=== PATIENT | male | born 1985 | race Caucasian/White ===

== ENCOUNTER 2017-02-25 15:34 | Emergency (ER) | payer SELFPAY ==
[2017-02-25] MEDS ORDERED: Penicillin V Potassium 500 MG Tab PO STA (15:54)
[2017-02-25] MEDS ORDERED: Bupivacaine 0.5%/EPINEPHrine 1:200,000 50 ML MDV NERVRT ONE (15:54)
--- NOTE | 2017-02-25 16:18 | EDM.PDOC ---
ED HPI GENERAL MEDICAL PROBLEM - General Chief Complaint: ENT Problem Stated Complaint: TOOTHACHE Time Seen by Provider: 02/25/17 16:00 Source of Information: Reports: Patient History Limitations: Reports: No Limitations - History of Present Illness INITIAL COMMENTS - FREE TEXT/NARRATIVE: 31 yo male from [place] presents on his way home from work with severe dental pain. Says he has no doctor or dentist as he is new in the area and has not yet found a dentist that will see him. He has 2 teeth on the right side of his mouth that are hurting him. No fever. 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) (none) - Related Data Home Meds: Home Meds Acetaminophen/HYDROcodone [Durham 325-5 MG] 1 - 2 tab PO Q6H PRN #10 tab [Rx] Penicillin V Potassium [IJD: Penicillin V Potassium] 500 mg PO .EVERY 6 HOURS # 40 tab 02/25/17 [Rx] ED ROS ENT - Review of Systems Review Of Systems: See Below Constitutional: Reports: No Symptoms HEENT: Reports: Dental Pain Respiratory: Reports: No Symptoms Cardiovascular: Reports: No Symptoms Endocrine: Reports: No Symptoms GI/Abdominal: Reports: No Symptoms : Reports: No Symptoms Musculoskeletal: Reports: No Symptoms Skin: Reports: No Symptoms Neurological: Reports: No Symptoms Psychiatric: Reports: No Symptoms ED EXAM, ENT - Physical Exam Exam: See Below Exam Limited By: No Limitations General Appearance: Alert, WD/WN, Mild Distress Eye Exam: Bilateral Eye: Normal Inspection Ears: Normal External Exam, Normal Canal, Hearing Grossly Normal Nose: Normal Inspection, Normal Mucousa, No Blood Mouth/Throat: Normal Lips, Normal Oropharynx, Dental Abcess, Dental Tenderness. No: Throat Pain, Throat Swelling, Tongue Swelling, Tonsillar Erythema, Tonsillar Exudates, Tonsillar Swelling Head: Atraumatic, Normocephalic Neck: Normal Inspection, Supple, Non-Tender. No: Lymphadenopathy (R), Lymphadenopathy (L) Respiratory/Chest: No Respiratory Distress, Lungs Clear, Normal Breath Sounds Neurological: Alert, Oriented, CN II-XII Intact, Normal Cognition, No Motor/ Sensory Deficits Psychiatric: Normal Affect, Normal Mood Skin: Warm, Dry, Intact, Normal Color, No Rash Lymphatic: No Adenopathy Course - Vital Signs Text/Narrative:: Nerve blocks with 5 ml x 2(one dose at each site) with 0.5% bupivacaine with epi. R posterior most mandibular molar and R maxillary canine. - Orders/Labs/Meds Meds: Medications Discontinued Medications Generic Name Dose Route Start Last Admin Trade Name Freq PRN Reason Stop Dose Admin Bupivacaine HCl/Epinephrine Bitart 50 ml 02/25/17 15:54 Marcaine 0.5%/Epinephrine 1:200,000 NERVRT 02/25/17 15:55 ONETIME ONE Penicillin V Potassium 500 mg 02/25/17 15:54 Veetids PO 02/25/17 15:55 NOW STA Departure - Departure Time of Disposition: 16:21 Disposition: Home, Self-Care 01 Condition: Fair Clinical Impression: Pain, dental, Dental abscess - Discharge Information Prescriptions: Acetaminophen/HYDROcodone [Durham 325-5 MG] 1 - 2 tab PO Q6H PRN #10 tab PRN Reason: Pain Penicillin V Potassium [IJD: Penicillin V Potassium] 500 mg PO .EVERY 6 HOURS # 40 tab Referrals: PCP,None [Primary Care Provider] - Forms: ED Department Discharge
[2017-02-25] MEDS ORDERED: Penicillin V Potassium 250 MG Tab PO ONE (16:45)
== END 2017-02-25 17:00 | disposition home or self-care (01) ==
LOC: FB.ED 15:34
DX: K04.7 Periapical abscess without sinus (principal)
CPT/HCPCS: 64400; 99282; A9270

== ENCOUNTER 2017-06-07 20:30 | Emergency (ER) | payer BC, MEDICAID ==
--- NOTE | 2017-06-09 13:17 | ER ---
DATE SEEN: 06/07/2017 Abnormal Behavior. Also, his symptoms are unusual. I think he is on drugs. He had difficulty signing his own name. He was shaky and had elevated blood pressure and tachycardia, all are suggestive of drug abuse. Urine sample is not obtained, nor was he confronted on this. He did have reaction of his pupils, they were not pinpoint or not dilated. However, it is possible he is using synthetic marijuana or other street drugs that could cause his agitation and restlessness. He could not sign his name without difficulty and was fidgety, and he wanted a work excuse to excuse him from work. I felt that this was not a reason to excuse him from work. He did not have a valid reason, and he was not excused from work. He works at [employer]. It would have been a different story if he came to me and said that he wanted to be excused from work because he was using drugs and he did not feel it was safe to work, but he did not come forward with that discussion. /[id number] JOANNE/PRATIMA
--- NOTE | 2017-06-10 09:20 | ER ---
DATE SEEN: 06/07/2017 TIME SEEN: The patient was seen at 2040 hours. HISTORY OF PRESENT ILLNESS: This is a 32-year-old man who smokes, comes in with history of popping his ears, "They won't pop." They have been doing this for 3 days. No nausea, vomiting, or diarrhea. No fever. No chills. He is a smoker and has a cough intermittently. No nasal congestion. No sinus pressure. No sore throat. No neck stiffness. No shortness of breath or cough, no chest pain, irregular heartbeat, gastrointestinal symptoms, symptoms, or musculoskeletal symptoms. REVIEW OF SYSTEMS: As noted above. PHYSICAL EXAMINATION: VITAL SIGNS: 160/95, heart rate 111, respirations 17, oxygen saturation 100%. HEENT: Pupils do react to light. He has unusual silver-green eyes. On examination, there is a trace of bulging left TM. Right is scarred without bulging. It is opaque. He has history of multiple ear infections, previous PE tubes placed, per history. Left ear, no fluid demonstrated. No erythema noted. The canal is clean. Umbo is visible and there is slight retraction of the TM. NECK: No cervical adenopathy. Pharynx without erythema. Smoking odor noted to his breath. Dentition fair. HEART: Without murmur. LUNGS: Clear. No rales or rhonchi or wheezes. ABDOMEN: Soft. No guarding. No abdominal discomfort. EXTREMITIES: Without edema. ASSESSMENT: 1. Viral upper respiratory infection. 2. Eustachian tube dysfunction. 3. Ear popping is a function of the eustachian tube dysfunction. PLAN: He has been taught the Toynbee maneuver and also he can use, mouth closed, nose plugged and blowing air out his ear as an attempt to also move the eardrums. Please stop smoking, and if he uses Sudafed, it may decrease the swelling and eustachian tube dysfunction and partial collapse. /[id number] JOANNE/PAULINEL
== END 2017-06-07 21:05 | disposition home or self-care (01) ==
LOC: FB.ED 20:30
DX: H69.93 Unspecified Eustachian tube disorder, bilateral (principal); J06.9 Acute upper respiratory infection, unspecified
CPT/HCPCS: 99282

== ENCOUNTER 2017-07-05 08:13 | Emergency (ER) | payer SELFPAY ==
[2017-07-05] MEDS ORDERED: Ketorolac 60 MG/2 ML SDV IM ONE (08:41)
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
--- NOTE | 2017-07-06 12:06 | CR ---
INDICATION: Fall, pain. RIGHT WRIST: Three views of the right wrist revealed no evidence of an acute fracture, dislocation, or other significant bone or joint abnormality. IMPRESSION: Normal right wrist. MTDD
== END 2017-07-05 09:40 | disposition home or self-care (01) ==
LOC: FB.ED 08:13
DX: S50.11XA Contusion of right forearm, initial encounter (principal); F17.210 Nicotine dependence, cigarettes, uncomplicated; W19.XXXA Unspecified fall, initial encounter; Y04.0XXA Assault by unarmed brawl or fight, initial encounter
CPT/HCPCS: 73110; 96372; 99283; J1885

== ENCOUNTER 2017-08-09 15:17 | Emergency (ER) | payer SELFPAY ==
[2017-08-09] MEDS ORDERED: Ketorolac 60 MG/2 ML SDV IM ONE (15:38)
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
[2017-08-09] MEDS ORDERED: Acetaminophen/oxyCODONE 325-5 MG Tab PO ONE (17:16)
== END 2017-08-09 17:20 | disposition home or self-care (01) ==
LOC: FB.ED 15:17
DX: G89.29 Other chronic pain (principal); M54.5 Low back pain; F17.210 Nicotine dependence, cigarettes, uncomplicated; Z98.890 Other specified postprocedural states
CPT/HCPCS: 96372; 99283; A9270; J1885; J2360

== ENCOUNTER 2017-09-26 19:14 | Emergency (ER) | payer OTHER ==
[2017-09-26] MEDS ORDERED: Ketorolac 60 MG/2 ML SDV IM ONE (20:41)
[2017-09-26] MEDS ORDERED: Acetaminophen/HYDROcodone 325-5 MG Tab PO ONE (21:31)
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
== END 2017-09-26 21:42 | disposition home or self-care (01) ==
LOC: FB.ED 19:14
DX: S82.431A Displaced oblique fracture of shaft of right fibula, initial encounter for closed fracture (principal); S82.831A Other fracture of upper and lower end of right fibula, initial encounter for closed fracture; F17.200 Nicotine dependence, unspecified, uncomplicated; W18.39XA Other fall on same level, initial encounter
CPT/HCPCS: 29515; 73590; 73610; 96372; 99283; A9270; J1885

== ENCOUNTER 2019-03-24 00:42 | Observation (INO) | payer SELFPAY ==
[2019-03-24] MEDS: Sodium Chloride 0.9% 10 ML Syringe FLUSH PRN ×4 (00:48→02:20)
[2019-03-24] MEDS ORDERED: Midazolam 1 MG/ML 2 ML SDV IVPUSH ONE (00:53)
[2019-03-24] MEDS ORDERED: Sodium Chloride 0.9% 1,000 ML IV SCH (01:00)
[2019-03-24] MEDS ORDERED: LORazepam 2 MG/ML SDV IV STA (01:15)
[2019-03-24 01:23] LABS: ACETAMINOPHEN < 2 ug/mL (<2)
--- NOTE | 2019-03-24 01:26 | EDM.PDOCBH ---
ED HPI GENERAL MEDICAL PROBLEM - General Chief Complaint: Drug or Alcohol Abuse Stated Complaint: OVERDOSE Time Seen by Provider: 03/24/19 01:20 Source of Information: Reports: EMS, EMS Notes Reviewed, Family History Limitations: Reports: Altered Mental Status, Intoxication - History of Present Illness INITIAL COMMENTS - FREE TEXT/NARRATIVE: 33 yo male brought by EMS unresponsive. Reported to have taken 16 tabs of Benadryl,had been complaining of suicidal intent earlier in the day. He was also drinking. Time of ingestion unclear. Upon arrival,EMS had to put an LMA to protect his airway,which stimulated to spontaneous breathing again.He had one large emesis,and received 4 mg IV as well as 150 mg of Ketamine enroute.IN the ED,I found him t o be extremely agitated,tremulous,and having muscle stiffness.I gave him 2 mg if IV Versed and 2 mg IV of Physostigmine,1 L of Normal saline. His past medical history is unclear,including allergies. - Related Data Allergies Allergy/AdvReac Type Severity Reaction Status Date / Time No Known Allergies Allergy Verified 03/24/19 15:02 Home Meds: Home Meds NK [No Known Home Meds] 07/05/17 [History] Escitalopram [Lexapro] 10 mg PO BEDTIME 03/24/19 [History] traZODone HCl [Trazodone HCl] 25 mg PO BEDTIME 03/24/19 [History] Past Medical History - Past Health History Medical/Surgical History: Denies Medical/Surgical History Social & Family History - Alcohol Use Alcohol Use History: Yes ED ROS GENERAL - Review of Systems Review Of Systems: Comprehensive ROS is negative, except as noted in HPI. ED EXAM, BEHAVIORAL HEALTH - Physical Exam Exam: See Below Exam Limited By: Altered Mental Status General Appearance: Mild Distress Eye Exam: Bilateral Eye: PERRL (Dilated) Ears: Normal External Exam Nose: Normal Inspection Throat/Mouth: Normal Inspection Head: Atraumatic Neck: Normal Inspection Respiratory/Chest: Decreased Breath Sounds Cardiovascular: Normal Peripheral Pulses GI/Abdominal: Normal Bowel Sounds (Male) Exam: No Hernia Back Exam: Normal Inspection Neurological: Disoriented to Place, Disoriented to Time, Inattentive Psychiatric: Incoherent, Restless, Agitated, Disoriented Skin Exam: Warm, Dry EKG INTERPRETATION EKG Date: 03/24/19 Rhythm: NSR Rate (Beats/Min): 130 Comparison: NA - No Prior EKG COURSE, BEHAVIORAL HEALTH COMP - Course Vital Signs: Last Vital Signs Temp 97.2 F 03/24/19 14:59 Pulse 74 03/24/19 14:59 Resp 20 03/24/19 14:59 BP 122/74 03/24/19 14:59 Pulse Ox 96 03/24/19 14:59 Orders, Labs, Meds: Laboratory Tests 03/24/19 03/24/19 03/24/19 Range/Units 00:50 00:50 00:50 WBC 13.3 H (4.5-12.0) X10-3/uL RBC 4.56 (4.30-5.75) x10(6)uL Hgb 15.0 (13.5-17.8) g/dL Hct 44.5 (30.0-51.3) % MCV 97.7 H (80-96) fL MCH 32.9 (27.7-33.6) pg MCHC 33.7 (32.2-35.4) g/dL RDW 12.1 (11.5-15.5) % Plt Count 294 (125-369) X10(3)uL MPV 8.1 (7.4-10.4) fL Add Manual Diff Yes Neutrophils % (Manual) 60 (46-82) % Band Neutrophils % 5 (0-6) % Lymphocytes % (Manual) 25 (13-37) % Monocytes % (Manual) 7 (4-12) % Eosinophils % (Manual) 3 (0-5) % Sodium 138 (135-145) mmol/L Potassium 4.4 (3.5-5.3) mmol/L Chloride 101 (100-110) mmol/L Carbon Dioxide 27 (21-32) mmol/L BUN 19 H (7-18) mg/dL Creatinine 0.9 (0.70-1.30) mg/dL Est Cr Clr Drug Dosing TNP Estimated GFR (MDRD) > 60 (>60) BUN/Creatinine Ratio 21.1 H (9-20) Glucose 99 (80-116) mg/dL Calcium 8.4 L (8.6-10.2) mg/dL Total Bilirubin 0.4 (0.1-1.3) mg/dL AST 72 H (5-25) IU/L ALT 77 H (12-36) U/L Alkaline Phosphatase 74 (56-112) IU/L Total Protein 7.9 (6.0-8.0) g/dL Albumin 4.6 (3.5-5.2) g/dL Globulin 3.3 g/dL Albumin/Globulin Ratio 1.4 Salicylates (<2.8) mg/dL Urine Opiates Screen (NEGATIVE) Ur Oxycodone Screen (NEGATIVE) Ur Propoxyphene Screen (NEGATIVE) Acetaminophen (<2) ug/mL Ur Barbituates Screen (NEGATIVE) Ur Tricyclics Screen (NEGATIVE) Ur Phencyclidine Scrn (NEGATIVE) Ur Amphetamine Screen (NEGATIVE) Urine MDMA Screen (NEGATIVE) U Benzodiazepines Scrn (NEGATIVE) U Cocaine Metab Screen (NEGATIVE) U Marijuana (THC) Screen (NEGATIVE) Ethyl Alcohol 0.21 H* (<0.03) % 03/24/19 03/24/19 Range/Units 00:50 01:28 WBC (4.5-12.0) X10-3/uL RBC (4.30-5.75) x10(6)uL Hgb (13.5-17.8) g/dL Hct (30.0-51.3) % MCV (80-96) fL MCH (27.7-33.6) pg MCHC (32.2-35.4) g/dL RDW (11.5-15.5) % Plt Count (125-369) X10(3)uL MPV (7.4-10.4) fL Add Manual Diff Neutrophils % (Manual) (46-82) % Band Neutrophils % (0-6) % Lymphocytes % (Manual) (13-37) % Monocytes % (Manual) (4-12) % Eosinophils % (Manual) (0-5) % Sodium (135-145) mmol/L Potassium (3.5-5.3) mmol/L Chloride (100-110) mmol/L Carbon Dioxide (21-32) mmol/L BUN (7-18) mg/dL Creatinine (0.70-1.30) mg/dL Est Cr Clr Drug Dosing Estimated GFR (MDRD) (>60) BUN/Creatinine Ratio (9-20) Glucose (80-116) mg/dL Calcium (8.6-10.2) mg/dL Total Bilirubin (0.1-1.3) mg/dL AST (5-25) IU/L ALT (12-36) U/L Alkaline Phosphatase (56-112) IU/L Total Protein (6.0-8.0) g/dL Albumin (3.5-5.2) g/dL Globulin g/dL Albumin/Globulin Ratio Salicylates 3.1 (<2.8) mg/dL Urine Opiates Screen Negative (NEGATIVE) Ur Oxycodone Screen Negative (NEGATIVE) Ur Propoxyphene Screen Negative (NEGATIVE) Acetaminophen < 2 L (<2) ug/mL Ur Barbituates Screen Negative (NEGATIVE) Ur Tricyclics Screen Negative (NEGATIVE) Ur Phencyclidine Scrn Negative (NEGATIVE) Ur Amphetamine Screen Negative (NEGATIVE) Urine MDMA Screen Negative (NEGATIVE) U Benzodiazepines Scrn Negative (NEGATIVE) U Cocaine Metab Screen Negative (NEGATIVE) U Marijuana (THC) Screen Negative (NEGATIVE) Ethyl Alcohol (<0.03) % Medications Discontinued Medications Generic Name Dose Route Start Last Admin Trade Name Freq PRN Reason Stop Dose Admin Sodium Chloride 1,000 mls @ 999 mls/hr 03/24/19 01:00 03/24/19 00:54 Normal Saline IV 999 mls/hr ASDIRECTED NIRMAL Administration Sodium Chloride 1,000 mls @ 125 mls/hr 03/24/19 01:45 03/24/19 10:11 Normal Saline IV 125 mls/hr ASDIRECTED NIRMAL Administration Lorazepam 1 mg 03/24/19 01:15 03/24/19 01:40 Ativan IV 03/24/19 01:16 1 mg ONETIME STA Administration Lorazepam 1 mg 03/24/19 01:43 Ativan IV Q1H PRN Agitation Lorazepam 0.5 mg 03/24/19 15:36 03/24/19 15:48 Ativan PO 03/24/19 15:37 0.5 mg ONETIME ONE Administration Midazolam HCl 2 mg 03/24/19 00:53 03/24/19 01:02 Versed 1 Mg/Ml IVPUSH 03/24/19 00:54 2 mg ONETIME ONE Administration Physostigmine Salicylate 2 mg 03/24/19 01:12 03/24/19 01:20 Physostigmine IVPUSH 03/24/19 01:13 2 mg ONETIME ONE Administration Sodium Chloride 10 ml 03/24/19 00:53 03/24/19 02:20 Saline Flush FLUSH 10 ml ASDIRECTED PRN Administration Keep Vein Open Departure - Departure Time of Disposition: 02:30 Disposition: Admitted As Inpatient 64 Condition: Good Clinical Impression: Alcohol abuse Anticholinergic drug overdose Qualifiers: Encounter type: initial encounter - Discharge Information *PRESCRIPTION DRUG MONITORING PROGRAM REVIEWED*: Yes *COPY OF PRESCRIPTION DRUG MONITORING REPORT IN PATIENT ELIAS: Yes - Problem List & Annotations (1) Elevated ETOH level SNOMED Code(s): 150855031 Code(s): R78.0 - FINDING OF ALCOHOL IN BLOOD Status: Acute Priority: High (2) Overdose SNOMED Code(s): 82217417 Code(s): T50.901A - POISONING BY UNSP DRUG/MEDS/BIOL SUBST, ACCIDENTAL, INIT Status: Acute Qualifiers: Encounter type: initial encounter (3) Anticholinergic drug overdose SNOMED Code(s): 907424469 Code(s): T44.3X1A - POISONING BY OTH PARASYMPATH AND SPASMOLYTICS, ACC, INIT Status: Acute Qualifiers: Encounter type: initial encounter - Problem List Review Problem List Initiated/Reviewed/Updated: Yes - Assessment/Plan Plan: Andrea did calm down with some versed and Physostigmine. Later he needed Lorazepam. Urine was obtained by catheterization.Urine drug screen,APAP and salicylate level was ordered. Will admit to ICU for monitoring and supportive therapy.
[2019-03-24] MEDS ORDERED: LORazepam 2 MG/ML SDV IV PRN (01:43)
[2019-03-24] MEDS: Sodium Chloride 0.9% 1,000 ML IV SCH ×2 (02:11→10:11)
--- NOTE | 2019-03-24 07:29 | PCM.HP.2 ---
H&P History of Present Illness - General Date of Service: 03/24/19 Admit Problem/Dx: Admission Diagnosis/Problem Admission Diagnosis/Problem Delirium due to multiple etiologies Source of Information: EMS Notes Reviewed, Old Records - History of Present Illness Initial Comments - Free Text/Narative: 33 yo male brought by EMS unresponsive. He is not speaking at this time. According to the ER note. Reported to have taken 16 tabs of Benadryl,had been complaining of suicidal intent earlier in the day. He was also drinking. Time of ingestion unclear. Upon arrival,EMS had to put an LMA to protect his airway, which stimulated to spontaneous breathing again.He had one large emesis,and received 4 mg IV as well as 150 mg of Ketamine enroute.IN the ED,I found him t o be extremely agitated,tremulous,and having muscle stiffness.I gave him 2 mg if IV Versed and 2 mg IV of Physostigmine,1 L of Normal saline. This is the ER note. I could not give the patient answered questions. He is very tired. He does move a little bit when I poke him and brought him. He has answered some questions for the nurses now is in a deep sleep at this time. Unable to get any more history than what is already on here. Poison control was contacted. He is in ICU under observation. - Related Data Allergies/Adverse Reactions: Allergies Allergy/AdvReac Type Severity Reaction Status Date / Time Unable to Assess Allergy Unverified 03/24/19 01:53 Home Medications: Home Meds Escitalopram [Lexapro] 10 mg PO BEDTIME 03/24/19 [History] traZODone HCl [Trazodone HCl] 25 mg PO BEDTIME 03/24/19 [History] Past Medical History Genitourinary History: Reports: Other (See Below) Other Genitourinary History: verbalizes having bladder problems at 12 years of age Neurological History: Reports: Other (See Below) Other Neuro History: emotional issues Other Psychiatric History: has had many sleep issues-depression and suicidal thoughts. Dad of suicide om 2005 Social & Family History - Family History Family Medical History: Unobtainable - Tobacco Use Smoking Status *Q: Current Every Day Smoker Years of Tobacco use: 18 Packs/Tins Daily: 1 - Caffeine Use Caffeine Use: Reports: Coffee, Energy Drinks, Soda Caffeine Use Comment: Unable to obtain information from patient. - Alcohol Use Days Per Week of Alcohol Use: 2 Number of Drinks Per Day: 6 Total Drinks Per Week: 12 Date of Last Drink: 03/23/19 Time of Last Drink: 20:00 - Recreational Drug Use Recreational Drug Use: No H&P Review of Systems - Review of Systems: Review Of Systems: Unable To Obtain Reason Not Obtained: Patient intoxicated with alcohol and sedated Exam - Exam Exam: See Below - Vital Signs Vital Signs: Last Vital Signs Temp 97 F 03/24/19 05:45 Pulse 75 03/24/19 05:45 Resp 22 H 03/24/19 05:45 BP 104/57 L 03/24/19 05:45 Pulse Ox 97 03/24/19 05:45 Weight: 137 lb 2 oz - Exam General: Sedated, Lethargic HEENT: Posterior Pharynx Clear, TMs Clear, Other (He has a gag reflex) Neck: Supple, Trachea Midline Lungs: Clear to Auscultation, Normal Respiratory Effort Cardiovascular: Regular Rate, Regular Rhythm. No: Systolic Murmur GI/Abdominal Exam: Normal Bowel Sounds, Soft, Non-Tender, No Distention Extremities: No Pedal Edema Skin: Warm, Intact - Patient Data Lab Results Last 24 hrs: Laboratory Results - last 24 hr 03/24/19 03/24/19 03/24/19 Range/Units 00:50 00:50 00:50 WBC 13.3 H (4.5-12.0) X10-3/uL RBC 4.56 (4.30-5.75) x10(6)uL Hgb 15.0 (13.5-17.8) g/dL Hct 44.5 (30.0-51.3) % MCV 97.7 H (80-96) fL MCH 32.9 (27.7-33.6) pg MCHC 33.7 (32.2-35.4) g/dL RDW 12.1 (11.5-15.5) % Plt Count 294 (125-369) X10(3)uL MPV 8.1 (7.4-10.4) fL Neut % (Auto) (46-82) % Lymph % (Auto) (13-37) % [place] % (Auto) (4-12) % Eos % (Auto) (1.0-5.0) % Baso % (Auto) (0-2) % Neut # (Auto) (1.6-8.3) # Lymph # (Auto) (0.6-5.0) # [place] # (Auto) (0.0-1.3) # Eos # (Auto) (0.0-0.8) # Baso # (Auto) (0.0-0.2) # Add Manual Diff Yes Neutrophils % (Manual) 60 (46-82) % Band Neutrophils % 5 (0-6) % Lymphocytes % (Manual) 25 (13-37) % Monocytes % (Manual) 7 (4-12) % Eosinophils % (Manual) 3 (0-5) % Sodium 138 (135-145) mmol/L Potassium 4.4 (3.5-5.3) mmol/L Chloride 101 (100-110) mmol/L Carbon Dioxide 27 (21-32) mmol/L BUN 19 H (7-18) mg/dL Creatinine 0.9 (0.70-1.30) mg/dL Est Cr Clr Drug Dosing TNP Estimated GFR (MDRD) > 60 (>60) BUN/Creatinine Ratio 21.1 H (9-20) Glucose 99 (80-116) mg/dL Calcium 8.4 L (8.6-10.2) mg/dL Total Bilirubin 0.4 (0.1-1.3) mg/dL AST 72 H (5-25) IU/L ALT 77 H (12-36) U/L Alkaline Phosphatase 74 (56-112) IU/L Troponin I (<0.017-0.056) ng/mL Total Protein 7.9 (6.0-8.0) g/dL Albumin 4.6 (3.5-5.2) g/dL Globulin 3.3 g/dL Albumin/Globulin Ratio 1.4 Salicylates (<2.8) mg/dL Urine Opiates Screen (NEGATIVE) Ur Oxycodone Screen (NEGATIVE) Ur Propoxyphene Screen (NEGATIVE) Acetaminophen (<2) ug/mL Ur Barbituates Screen (NEGATIVE) Ur Tricyclics Screen (NEGATIVE) Ur Phencyclidine Scrn (NEGATIVE) Ur Amphetamine Screen (NEGATIVE) Urine MDMA Screen (NEGATIVE) U Benzodiazepines Scrn (NEGATIVE) U Cocaine Metab Screen (NEGATIVE) U Marijuana (THC) Screen (NEGATIVE) Ethyl Alcohol 0.21 H* (<0.03) % 03/24/19 03/24/19 03/24/19 Range/Units 00:50 01:28 06:32 WBC 9.0 (4.5-12.0) X10-3/uL RBC 3.80 L (4.30-5.75) x10(6)uL Hgb 12.9 L (13.5-17.8) g/dL Hct 36.4 (30.0-51.3) % MCV 95.9 (80-96) fL MCH 34.0 H (27.7-33.6) pg MCHC 35.5 H (32.2-35.4) g/dL RDW 12.3 (11.5-15.5) % Plt Count 225 (125-369) X10(3)uL MPV 7.5 (7.4-10.4) fL Neut % (Auto) 82.5 H (46-82) % Lymph % (Auto) 12.8 L (13-37) % [place] % (Auto) 3.9 L (4-12) % Eos % (Auto) 1 (1.0-5.0) % Baso % (Auto) 0 (0-2) % Neut # (Auto) 7.6 (1.6-8.3) # Lymph # (Auto) 1.1 (0.6-5.0) # [place] # (Auto) 0.3 (0.0-1.3) # Eos # (Auto) 0.0 (0.0-0.8) # Baso # (Auto) 0.0 (0.0-0.2) # Add Manual Diff Neutrophils % (Manual) (46-82) % Band Neutrophils % (0-6) % Lymphocytes % (Manual) (13-37) % Monocytes % (Manual) (4-12) % Eosinophils % (Manual) (0-5) % Sodium (135-145) mmol/L Potassium (3.5-5.3) mmol/L Chloride (100-110) mmol/L Carbon Dioxide (21-32) mmol/L BUN (7-18) mg/dL Creatinine (0.70-1.30) mg/dL Est Cr Clr Drug Dosing Estimated GFR (MDRD) (>60) BUN/Creatinine Ratio (9-20) Glucose (80-116) mg/dL Calcium (8.6-10.2) mg/dL Total Bilirubin (0.1-1.3) mg/dL AST (5-25) IU/L ALT (12-36) U/L Alkaline Phosphatase (56-112) IU/L Troponin I (<0.017-0.056) ng/mL Total Protein (6.0-8.0) g/dL Albumin (3.5-5.2) g/dL Globulin g/dL Albumin/Globulin Ratio Salicylates 3.1 (<2.8) mg/dL Urine Opiates Screen Negative (NEGATIVE) Ur Oxycodone Screen Negative (NEGATIVE) Ur Propoxyphene Screen Negative (NEGATIVE) Acetaminophen < 2 L (<2) ug/mL Ur Barbituates Screen Negative (NEGATIVE) Ur Tricyclics Screen Negative (NEGATIVE) Ur Phencyclidine Scrn Negative (NEGATIVE) Ur Amphetamine Screen Negative (NEGATIVE) Urine MDMA Screen Negative (NEGATIVE) U Benzodiazepines Scrn Negative (NEGATIVE) U Cocaine Metab Screen Negative (NEGATIVE) U Marijuana (THC) Screen Negative (NEGATIVE) Ethyl Alcohol (<0.03) % 03/24/19 03/24/19 Range/Units 06:32 06:32 WBC (4.5-12.0) X10-3/uL RBC (4.30-5.75) x10(6)uL Hgb (13.5-17.8) g/dL Hct (30.0-51.3) % MCV (80-96) fL MCH (27.7-33.6) pg MCHC (32.2-35.4) g/dL RDW (11.5-15.5) % Plt Count (125-369) X10(3)uL MPV (7.4-10.4) fL Neut % (Auto) (46-82) % Lymph % (Auto) (13-37) % [place] % (Auto) (4-12) % Eos % (Auto) (1.0-5.0) % Baso % (Auto) (0-2) % Neut # (Auto) (1.6-8.3) # Lymph # (Auto) (0.6-5.0) # [place] # (Auto) (0.0-1.3) # Eos # (Auto) (0.0-0.8) # Baso # (Auto) (0.0-0.2) # Add Manual Diff Neutrophils % (Manual) (46-82) % Band Neutrophils % (0-6) % Lymphocytes % (Manual) (13-37) % Monocytes % (Manual) (4-12) % Eosinophils % (Manual) (0-5) % Sodium 139 (135-145) mmol/L Potassium 3.7 (3.5-5.3) mmol/L Chloride 106 D (100-110) mmol/L Carbon Dioxide 26 (21-32) mmol/L BUN 14 (7-18) mg/dL Creatinine 0.7 (0.70-1.30) mg/dL Est Cr Clr Drug Dosing 129.58 Estimated GFR (MDRD) > 60 (>60) BUN/Creatinine Ratio 20.0 (9-20) Glucose 95 (80-116) mg/dL Calcium 7.6 L (8.6-10.2) mg/dL Total Bilirubin (0.1-1.3) mg/dL AST (5-25) IU/L ALT (12-36) U/L Alkaline Phosphatase (56-112) IU/L Troponin I < 0.017 L (<0.017-0.056) ng/mL Total Protein (6.0-8.0) g/dL Albumin (3.5-5.2) g/dL Globulin g/dL Albumin/Globulin Ratio Salicylates (<2.8) mg/dL Urine Opiates Screen (NEGATIVE) Ur Oxycodone Screen (NEGATIVE) Ur Propoxyphene Screen (NEGATIVE) Acetaminophen (<2) ug/mL Ur Barbituates Screen (NEGATIVE) Ur Tricyclics Screen (NEGATIVE) Ur Phencyclidine Scrn (NEGATIVE) Ur Amphetamine Screen (NEGATIVE) Urine MDMA Screen (NEGATIVE) U Benzodiazepines Scrn (NEGATIVE) U Cocaine Metab Screen (NEGATIVE) U Marijuana (THC) Screen (NEGATIVE) Ethyl Alcohol (<0.03) % Result Diagrams: 03/24/19 06:32 03/24/19 06:32 - Problem List (1) Anxiety SNOMED Code(s): 38742617 ICD Code: F41.9 - ANXIETY DISORDER, UNSPECIFIED Status: Acute Current Visit: Yes (2) Alcohol abuse SNOMED Code(s): 40069854 ICD Code: F10.10 - ALCOHOL ABUSE, UNCOMPLICATED Status: Acute Current Visit: Yes (3) Anticholinergic drug overdose SNOMED Code(s): 998914107 ICD Code: T44.3X1A - POISONING BY OTH PARASYMPATH AND SPASMOLYTICS, ACC, INIT Status: Acute Current Visit: Yes Qualifiers: Encounter type: initial encounter (4) Elevated ETOH level SNOMED Code(s): 882208124 ICD Code: R78.0 - FINDING OF ALCOHOL IN BLOOD Status: Acute Current Visit : No (5) Overdose SNOMED Code(s): 38881948 ICD Code: T50.901A - POISONING BY UNSP DRUG/MEDS/BIOL SUBST, ACCIDENTAL, INIT Status: Acute Current Visit: No Qualifiers: Encounter type: initial encounter Problem List Initiated/Reviewed/Updated: Yes Orders Last 24hrs: Active Orders 24 hr Category Date Time Status Patient Status [ADT] Routine ADT 03/24/19 01:43 Active EKG Documentation Completion [RC] ASDIRECTED Care 03/24/19 00:52 Active EKG Documentation Completion [RC] ASDIRECTED Care 03/24/19 00:53 Active Height and Weight [RC] DAILY Care 03/24/19 01:43 Active Intake and Output [RC] QSHIFT Care 03/24/19 01:44 Active Oxygen Therapy [RC] PRN Care 03/24/19 01:43 Active VTE/DVT Education [RC] Per Unit Routine Care 03/24/19 01:43 Active Vital Signs [RC] Q4H Care 03/24/19 01:43 Active Regular Diet [DIET] Diet 03/24/19 Breakfast Ordered Chest 1V Frontal [CR] Stat Exams 03/24/19 01:17 Taken LORazepam [Ativan] Med 03/24/19 01:43 Active 1 mg IV Q1H PRN Sodium Chloride 0.9% [Normal Saline] 1,000 ml Med 03/24/19 01:00 Active IV ASDIRECTED Sodium Chloride 0.9% [Normal Saline] 1,000 ml Med 03/24/19 01:45 Active IV ASDIRECTED Sodium Chloride 0.9% [Saline Flush] Med 03/24/19 00:53 Active 10 ml FLUSH ASDIRECTED PRN Peripheral IV Insertion Adult [OM.PC] Routine Oth 03/24/19 00:53 Ordered Resuscitation Status Routine Resus Stat 03/24/19 01:43 Ordered EKG 12 Lead [EK] Routine Ther 03/24/19 00:52 Ordered Medication Orders Sodium Chloride (Normal Saline) 1,000 mls @ 999 mls/hr IV ASDIRECTED [facility] Last Admin: 03/24/19 00:54 Dose: 999 mls/hr Sodium Chloride (Normal Saline) 1,000 mls @ 125 mls/hr IV ASDIRECTED [facility] Last Admin: 03/24/19 02:11 Dose: 125 mls/hr Lorazepam (Ativan) 1 mg IV Q1H PRN PRN Reason: Agitation Sodium Chloride (Saline Flush) 10 ml FLUSH ASDIRECTED PRN PRN Reason: Keep Vein Open Last Admin: 03/24/19 02:20 Dose: 10 ml Admin: 03/24/19 01:20 Dose: 10 ml Admin: 03/24/19 01:00 Dose: 10 ml Admin: 03/24/19 00:48 Dose: 10 ml Assessment/Plan Comment:: 1. admit to ICU for observation 2. Have to to the alcohol wears off and he wakes up to get a better history per 3. Regular diet when he wakes up 4. Hold his regular medicines at this time. 5. Up ad neelima. 6. Labs reviewed and will not be repeated - Mortality Measure Prognosis:: Good
[2019-03-24] MEDS ORDERED: LORazepam 0.5 MG Tab PO ONE (15:36)
--- NOTE | 2019-03-24 17:39 | PCM.SN ---
- Free Text/Narrative Note: Discussed patient's care with a psychiatrist Pato. They recommended that if he doesn't drink and has state placed ago which he says he does that he could go home and recheck. Patient says he wants his for his alcohol. We called [facility] and they can get appointment next week or he can walk and tomorrow. The patient says he'll walk anymore. He denies suicidal ideation but says he does want to get his life turned around.
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
== END 2019-03-24 17:45 | disposition home or self-care (01) ==
LOC: EDBD 00:42 → FB.ED 00:42 → FB.ICU 01:56 → EDUNIT# 01:56
PROVIDERS: ADMIT Family Medicine; ATTEND Family Medicine
DX: T44.3X1A Poisoning by other parasympatholytics [anticholinergics and antimuscarinics] and spasmolytics, accidental (unintentional), initial encounter (principal); R41.0 Disorientation, unspecified; F10.10 Alcohol abuse, uncomplicated; F41.9 Anxiety disorder, unspecified; F32.9 Major depressive disorder, single episode, unspecified; F17.210 Nicotine dependence, cigarettes, uncomplicated
CPT/HCPCS: 36415; 71045; 80048; 80053; 80305-QW; 84484; 85025; 93005; 96361; 96374; 96375; 99285-25; A9270-GY; G0480; J2060; J2250; J7030

== ENCOUNTER 2021-12-01 22:35 | Emergency (ER) | payer BC ==
[2021-12-01] MEDS: Ketorolac 30 MG/ML SDV IM ONE (23:30)
[2021-12-01] MEDS: Lidocaine 2% Viscous Solution 15 ML UD PO ONE (23:30)
[2021-12-01] MEDS: Amoxicillin 500 MG Cap PO ONE (23:40)
== END 2021-12-01 23:46 | disposition home or self-care (01) ==
LOC: FB.ED 22:35
DX: K08.89 Other specified disorders of teeth and supporting structures (principal)
CPT/HCPCS: 96372; 99281; 99282; A9270; J1885

== ENCOUNTER 2021-12-02 05:31 | Emergency (ER) | payer BC ==
[2021-12-02] MEDS ORDERED: hydrOXYzine HCl 50 MG/ML SDV IM ONE (05:52)
[2021-12-02] MEDS ORDERED: Ketorolac 30 MG/ML SDV IM ONE (05:52)
[2021-12-02] MEDS ORDERED: Amoxicillin 500 MG Cap PO ONE (05:54)
[2021-12-02] MEDS ORDERED: Lidocaine 2% Viscous Solution 15 ML UD PO ONE (05:54)
== END 2021-12-02 06:10 | disposition home or self-care (01) ==
LOC: FB.ED 05:31
DX: K08.89 Other specified disorders of teeth and supporting structures (principal); F17.210 Nicotine dependence, cigarettes, uncomplicated
CPT/HCPCS: 96372; 99281; 99282; A9270-GY; J1885; J3410

== ENCOUNTER 2022-05-16 10:07 | Emergency (ER) | payer BC, MEDICAID ==
[2022-05-16] MEDS ORDERED: Ketorolac 30 MG/ML SDV IM ONE (12:59)
== END 2022-05-16 13:27 | disposition home or self-care (01) ==
LOC: FB.ED 10:07
DX: M54.16 Radiculopathy, lumbar region (principal); F17.290 Nicotine dependence, other tobacco product, uncomplicated
CPT/HCPCS: 96372; 99283; J1885

== ENCOUNTER 2022-06-19 09:27 | Emergency (ER) | payer MEDICAID ==
[2022-06-19] MEDS ORDERED: Ondansetron 4 MG/2 ML SDV IVPUSH ONE (09:57)
[2022-06-19] MEDS ORDERED: Sodium Chloride 0.9% 1,000 ML IV ONE (09:57)
[2022-06-19 10:21] LABS: ESTIMATED GFR 111 mL/min (>60)
[2022-06-19] MEDS ORDERED: Albuterol/Ipratropium 3.0-0.5 MG/3 ML Neb Soln NEB ONE (11:08)
[2022-06-19] MEDS ORDERED: predniSONE 20 MG Tab PO STA (11:08)
[2022-06-19 11:20] LABS: CORONAVIRUS COVID-19 NAA POSITIVE (NEGATIVE)
== END 2022-06-19 11:45 | disposition home or self-care (01) ==
LOC: FB.ED 09:27
DX: U07.1 COVID-19 (principal); J20.9 Acute bronchitis, unspecified; J06.9 Acute upper respiratory infection, unspecified; Z79.899 Other long term (current) drug therapy
CPT/HCPCS: 0241U; 36415; 71045; 80053; 81001; 82150; 83690; 85025; 94640; 96361; 96374; 99285-25; J2405; J7030; J7512; J7620

== ENCOUNTER 2022-09-05 10:36 | Emergency (ER) | payer MEDICAID ==
[2022-09-05] MEDS ORDERED: LORazepam 2 MG/ML SDV IVPUSH ONE (10:46)
[2022-09-05] MEDS: Sodium Chloride 0.9% 10 ML Syringe FLUSH PRN ×2 (10:51→10:57)
[2022-09-05 11:04] LABS: BASOPHILS PERCENT AUTO 0.7 % (0.3-3.8); EOSINOPHILS ABSOLUTE AUTO 0.1 x10-3/uL (0.0-0.6); EOSINOPHILS PERCENT AUTO 1.7 % (0.1-6.8); HEMATOCRIT 44.2 % (38.3-50.1); HEMOGLOBIN 15.1 g/dL (12.9-17.7); LYMPHOCYTES ABSOLUTE AUTO 2.5 x10-3/uL (0.5-4.5); LYMPHOCYTES PERCENT AUTO 47.8 % (15.8-45.3); MEAN CORPUSCULAR HEMOGLOBIN 32.8 pg (27.0-33.3); MEAN CORPUSCULAR HGB CONC 34.2 g/dL (28.7-35.3); MEAN CORPUSCULAR VOLUME 95.8 fL (80.8-98.7); MEAN PLATELET VOLUME 7.6 fL (6.7-11.0); MONOCYTES ABSOLUTE AUTO 0.6 x10-3/uL (0.0-1.2); MONOCYTES PERCENT AUTO 11.4 % (5.5-15.2); NEUTROPHILS PERCENT AUTO 38.4 % (40.3-71.8); PLATELET COUNT,PLT 257 x10(3)uL (117-477); RED BLOOD CELL COUNT 4.61 x10(6)uL (3.90-5.90); RED CELL DISTRIBUTION WIDTH 13.2 % (12.4-15.0); WHITE BLOOD CELL COUNT,WBC 5.2 x10-3/uL (3.2-10.1)
[2022-09-05 11:10] LABS: BLOOD UREA NITROGEN,BUN 11 mg/dL (7-18); BUN/CREATININE RATIO 12.2 (9-20); CALCIUM 8.2 mg/dL (8.6-10.2); CARBON DIOXIDE,CO2 29 mmol/L (21-32); CHLORIDE,CL 102 mmol/L (100-110); CREATININE 0.9 mg/dL (0.70-1.30); ESTIMATED GFR 111 mL/min (>60); GLUCOSE RANDOM 112 mg/dL (80-116); POTASSIUM,K 3.2 mmol/L (3.5-5.3); SODIUM,NA 142 mmol/L (135-145)
[2022-09-05 11:21] LABS: ALANINE AMINOTRANSFERASE,ALT 117 U/L (12-36); ALBUMIN 3.7 g/dL (3.5-5.2); ALKALINE PHOSPHATASE 85 IU/L (56-112); BILIRUBIN TOTAL 0.5 mg/dL (0.1-1.3); PROTEIN TOTAL,TP 7.4 g/dL (6.0-8.0)
[2022-09-05 11:23] LABS: ASPARTATE AMNIOTRANSFERASE,AST 184 IU/L (5-25)
[2022-09-05 11:58] LABS: AMPHETAMINES SCREEN, URINE NEGATIVE (NEGATIVE); BARBITURATE SCREEN,URINE NEGATIVE (NEGATIVE); BENZODIAZEPINES SCREEN,URINE NEGATIVE (NEGATIVE); BUPRENORPHINE SCREEN,URINE NEGATIVE (NEGATIVE); METHADONE SCREEN, URINE NEGATIVE (NEGATIVE); METHAMPHETAMINE SCREEN, URINE NEGATIVE (NEGATIVE); OXYCODONE SCREEN,URINE NEGATIVE (NEGATIVE); PROPOXYPHENE SCREEN,URINE NEGATIVE (NEGATIVE); THC SCREEN,URINE NEGATIVE (NEGATIVE)
== END 2022-09-05 11:58 | disposition home or self-care (01) ==
LOC: FB.ED 10:36
DX: F41.0 Panic disorder [episodic paroxysmal anxiety] (principal); K70.9 Alcoholic liver disease, unspecified; F10.129 Alcohol abuse with intoxication, unspecified; E87.6 Hypokalemia; Y90.1 Blood alcohol level of 20-39 mg/100 ml
CPT/HCPCS: 36415; 80053; 80307; 85025; 96374; 99284; J2060; J3490

== ENCOUNTER 2022-11-13 09:10 | Emergency (ER) | payer SELFPAY ==
[2022-11-13] MEDS ORDERED: Ondansetron 4 MG/2 ML SDV IVPUSH ONE (09:25)
[2022-11-13] MEDS ORDERED: Sodium Chloride 0.9% 10 ML Syringe FLUSH PRN (09:43)
[2022-11-13] MEDS ORDERED: Sodium Chloride 0.9% 1,000 ML IV SCH ×2 (09:45→10:15)
[2022-11-13 09:51] LABS: BASOPHILS PERCENT AUTO 0.6 % (0.3-3.8); EOSINOPHILS ABSOLUTE AUTO 0.1 x10-3/uL (0.0-0.6); EOSINOPHILS PERCENT AUTO 1.1 % (0.1-6.8); HEMATOCRIT 44.5 % (38.3-50.1); HEMOGLOBIN 15.8 g/dL (12.9-17.7); LYMPHOCYTES ABSOLUTE AUTO 1.1 x10-3/uL (0.5-4.5); LYMPHOCYTES PERCENT AUTO 22.4 % (15.8-45.3); MEAN CORPUSCULAR HEMOGLOBIN 33.9 pg (27.0-33.3); MEAN CORPUSCULAR HGB CONC 35.5 g/dL (28.7-35.3); MEAN CORPUSCULAR VOLUME 95.5 fL (80.8-98.7); MEAN PLATELET VOLUME 8.4 fL (6.7-11.0); MONOCYTES ABSOLUTE AUTO 0.7 x10-3/uL (0.0-1.2); MONOCYTES PERCENT AUTO 14.7 % (5.5-15.2); NEUTROPHILS ABSOLUTE AUTO 2.9 x10-3/uL (1.7-6.9); NEUTROPHILS PERCENT AUTO 61.2 % (40.3-71.8); PLATELET COUNT,PLT 245 x10(3)uL (117-477); RED BLOOD CELL COUNT 4.66 x10(6)uL (3.90-5.90); RED CELL DISTRIBUTION WIDTH 14.3 % (12.4-15.0); WHITE BLOOD CELL COUNT,WBC 4.7 x10-3/uL (3.2-10.1)
[2022-11-13 09:53] LABS: BLOOD UREA NITROGEN,BUN 27 mg/dL (7-18); CALCIUM 9.4 mg/dL (8.6-10.2); CARBON DIOXIDE,CO2 29 mmol/L (21-32); CREATININE 1.5 mg/dL (0.70-1.30); ESTIMATED GFR 60 mL/min (>60); GLUCOSE RANDOM 109 mg/dL (80-116); POTASSIUM,K 3.1 mmol/L (3.5-5.3); SODIUM,NA 129 mmol/L (135-145)
[2022-11-13 10:04] LABS: CHLORIDE,CL 85 mmol/L (100-110)
[2022-11-13] MEDS ORDERED: Potassium Chloride 20 MEQ Tab.ER PO STA ×2 (10:10→12:30)
[2022-11-13 12:02] LABS: BLOOD UREA NITROGEN,BUN 22 mg/dL (7-18); CALCIUM 7.7 mg/dL (8.6-10.2); CARBON DIOXIDE,CO2 28 mmol/L (21-32); CHLORIDE,CL 93 mmol/L (100-110); CREATININE 1.1 mg/dL (0.70-1.30); EST CRCL DRUG DOSING (CG) 83.87 mL/min; ESTIMATED GFR 88 mL/min (>60); GLUCOSE RANDOM 103 mg/dL (80-116); POTASSIUM,K 3.2 mmol/L (3.5-5.3); SODIUM,NA 131 mmol/L (135-145)
== END 2022-11-13 13:26 | disposition home or self-care (01) ==
LOC: FB.ED 09:10
DX: T67.5XXA Heat exhaustion, unspecified, initial encounter (principal); E86.0 Dehydration; E87.6 Hypokalemia; N17.9 Acute kidney failure, unspecified; F17.210 Nicotine dependence, cigarettes, uncomplicated; X30.XXXA Exposure to excessive natural heat, initial encounter
CPT/HCPCS: 36415; 80048; 85025; 96361; 96374; 99284-25; A9270-GY; J2405; J7030

== ENCOUNTER 2022-11-17 21:39 | Emergency (ER) | payer SELFPAY ==
[2022-11-17] MEDS ORDERED: Sodium Chloride 0.9% 1,000 ML IV ONE ×2 (21:55→23:30)
[2022-11-17 22:10] LABS: BASOPHILS PERCENT AUTO 0.8 % (0.3-3.8); EOSINOPHILS PERCENT AUTO 0.5 % (0.1-6.8); HEMATOCRIT 37.1 % (38.3-50.1); HEMOGLOBIN 12.8 g/dL (12.9-17.7); LYMPHOCYTES ABSOLUTE AUTO 1.8 x10-3/uL (0.5-4.5); LYMPHOCYTES PERCENT AUTO 40.2 % (15.8-45.3); MEAN CORPUSCULAR HEMOGLOBIN 34.1 pg (27.0-33.3); MEAN CORPUSCULAR HGB CONC 34.5 g/dL (28.7-35.3); MEAN CORPUSCULAR VOLUME 98.9 fL (80.8-98.7); MEAN PLATELET VOLUME 7.5 fL (6.7-11.0); MONOCYTES ABSOLUTE AUTO 0.6 x10-3/uL (0.0-1.2); MONOCYTES PERCENT AUTO 13.5 % (5.5-15.2); NEUTROPHILS ABSOLUTE AUTO 2.1 x10-3/uL (1.7-6.9); PLATELET COUNT,PLT 228 x10(3)uL (117-477); RED BLOOD CELL COUNT 3.75 x10(6)uL (3.90-5.90); RED CELL DISTRIBUTION WIDTH 14.2 % (12.4-15.0); WHITE BLOOD CELL COUNT,WBC 4.6 x10-3/uL (3.2-10.1)
[2022-11-17 22:17] LABS: BLOOD UREA NITROGEN,BUN 11 mg/dL (7-18); CALCIUM 8.2 mg/dL (8.6-10.2); CARBON DIOXIDE,CO2 30 mmol/L (21-32); CHLORIDE,CL 101 mmol/L (100-110); CREATININE 1.1 mg/dL (0.70-1.30); EST CRCL DRUG DOSING (CG) 83.87 mL/min; ESTIMATED GFR 88 mL/min (>60); GLUCOSE RANDOM 104 mg/dL (80-116); POTASSIUM,K 4.1 mmol/L (3.5-5.3); SODIUM,NA 140 mmol/L (135-145)
[2022-11-17 22:22] LABS: ALANINE AMINOTRANSFERASE,ALT 65 U/L (12-36); ALBUMIN 3.7 g/dL (3.5-5.2); ALKALINE PHOSPHATASE 78 IU/L (56-112); ASPARTATE AMNIOTRANSFERASE,AST 106 IU/L (5-25); BILIRUBIN TOTAL 0.2 mg/dL (0.1-1.3); MAGNESIUM 1.8 mg/dL (1.8-2.5); PHOSPHORUS 3.7 mg/dL (2.6-4.6); PROTEIN TOTAL,TP 7.3 g/dL (6.0-8.0)
[2022-11-17 22:28] LABS: PRO B-TYPE NATRIUR PEPT,BNPPRO 51 pg/mL (<=125)
[2022-11-17 22:31] LABS: TROPONIN I < 4.0 pg/mL (4.0-60.3)
[2022-11-17 22:32] LABS: ETHANOL BLOOD MEDICAL 0.21 % (<0.03)
[2022-11-17] MEDS ORDERED: Calcium Gluconate 10% 1 GM/10 ML SDV IVPUSH ONE (23:15)
== END 2022-11-18 00:48 | disposition home or self-care (01) ==
LOC: FB.ED 21:39
DX: R55 Syncope and collapse (principal); R20.2 Paresthesia of skin; F43.11 Post-traumatic stress disorder, acute; F41.0 Panic disorder [episodic paroxysmal anxiety]; F17.210 Nicotine dependence, cigarettes, uncomplicated; Z79.899 Other long term (current) drug therapy
CPT/HCPCS: 36415; 80053; 80307; 83735; 83880; 84100; 84484; 85025; 85379; 86140; 96361; 96374; 99284; J0612; J7030

== ENCOUNTER 2023-01-08 13:30 | Emergency (ER) | payer SELFPAY ==
[2023-01-08] MEDS ORDERED: LORazepam 2 MG/ML SDV IM STA (14:09)
== END 2023-01-08 14:45 | disposition home or self-care (01) ==
LOC: FB.ED 13:30
DX: F43.10 Post-traumatic stress disorder, unspecified (principal); F41.1 Generalized anxiety disorder; F17.210 Nicotine dependence, cigarettes, uncomplicated; Z79.899 Other long term (current) drug therapy
CPT/HCPCS: 93005; 93010; 96372; 99283; 99284; J2060

== ENCOUNTER 2023-01-12 08:18 | Emergency (ER) | payer SELFPAY ==
[2023-01-12] MEDS ORDERED: Metoprolol Tartrate 50 MG Tab PO ONE (08:28)
[2023-01-12] MEDS ORDERED: LORazepam 2 MG/ML SDV IVPUSH ONE (08:28)
== END 2023-01-12 10:00 | disposition home or self-care (01) ==
LOC: FB.ED 08:18
DX: F41.0 Panic disorder [episodic paroxysmal anxiety] (principal)
CPT/HCPCS: 96374; 99285; A9270; J2060

== ENCOUNTER 2023-01-19 03:48 | Emergency (ER) | payer MEDICAID ==
[2023-01-19] MEDS: Sodium Chloride 0.9% 1,000 ML IV SCH (04:09)
[2023-01-19] MEDS: Ondansetron 4 MG/2 ML SDV IVPUSH ONE (04:22)
[2023-01-19] MEDS: Thiamine 200 MG/2 ML MDV IVPUSH ONE (04:22)
[2023-01-19] MEDS: Pantoprazole 40 MG Vial IVPUSH ONE (04:23)
[2023-01-19 04:42] LABS: BLOOD UREA NITROGEN,BUN 10 mg/dL (7-18); BUN/CREATININE RATIO 12.5 (9-20); CALCIUM 8.4 mg/dL (8.6-10.2); CARBON DIOXIDE,CO2 30 mmol/L (21-32); CHLORIDE,CL 99 mmol/L (100-110); CREATININE 0.8 mg/dL (0.70-1.30); ESTIMATED GFR 115 mL/min (>60); GLUCOSE RANDOM 126 mg/dL (80-116); POTASSIUM,K 3.3 mmol/L (3.5-5.3); SODIUM,NA 139 mmol/L (135-145)
[2023-01-19 04:44] LABS: BASOPHILS PERCENT AUTO 0.6 % (0.3-3.8); HEMATOCRIT 41.6 % (38.3-50.1); HEMOGLOBIN 14.3 g/dL (12.9-17.7); LYMPHOCYTES ABSOLUTE AUTO 1.1 x10-3/uL (0.5-4.5); LYMPHOCYTES PERCENT AUTO 27.4 % (15.8-45.3); MEAN CORPUSCULAR HEMOGLOBIN 33.8 pg (27.0-33.3); MEAN CORPUSCULAR HGB CONC 34.3 g/dL (28.7-35.3); MEAN CORPUSCULAR VOLUME 98.6 fL (80.8-98.7); MEAN PLATELET VOLUME 7.4 fL (6.7-11.0); MONOCYTES ABSOLUTE AUTO 0.5 x10-3/uL (0.0-1.2); MONOCYTES PERCENT AUTO 11.3 % (5.5-15.2); NEUTROPHILS ABSOLUTE AUTO 2.5 x10-3/uL (1.7-6.9); NEUTROPHILS PERCENT AUTO 59.7 % (40.3-71.8); PLATELET COUNT,PLT 145 x10(3)uL (117-477); RED BLOOD CELL COUNT 4.22 x10(6)uL (3.90-5.90); RED CELL DISTRIBUTION WIDTH 14.4 % (12.4-15.0); WHITE BLOOD CELL COUNT,WBC 4.2 x10-3/uL (3.2-10.1)
[2023-01-19 04:53] LABS: A/G RATIO 0.9; ALBUMIN 3.7 g/dL (3.5-5.2); ALKALINE PHOSPHATASE 105 IU/L (56-112); BILIRUBIN TOTAL 0.5 mg/dL (0.1-1.3); MAGNESIUM 1.9 mg/dL (1.8-2.5); PROTEIN TOTAL,TP 7.7 g/dL (6.0-8.0)
[2023-01-19 04:59] LABS: ALANINE AMINOTRANSFERASE,ALT 156 U/L (12-36)
[2023-01-19 05:00] LABS: ASPARTATE AMNIOTRANSFERASE,AST 307 IU/L (5-25)
[2023-01-19] MEDS: Sodium Chloride 0.9% 1,000 ML IV STA (05:30)
[2023-01-19] MEDS: Ketorolac 30 MG/ML SDV IVPUSH ONE (06:43)
[2023-01-19] MEDS: cloNIDine 0.1 MG Tab PO ONE (07:33)
[2023-01-19] MEDS: Potassium Chloride 20 MEQ Tab.ER PO ONE (07:34)
[2023-01-19] MEDS: LORazepam 2 MG/ML SDV IVPUSH ONE (08:39)
== END 2023-01-19 10:10 | disposition home or self-care (01) ==
LOC: FB.ED 03:48
DX: S20.211A Contusion of right front wall of thorax, initial encounter (principal); S06.0X0A Concussion without loss of consciousness, initial encounter; K29.20 Alcoholic gastritis without bleeding; E87.6 Hypokalemia; F43.10 Post-traumatic stress disorder, unspecified; F41.0 Panic disorder [episodic paroxysmal anxiety]; F10.129 Alcohol abuse with intoxication, unspecified; W19.XXXA Unspecified fall, initial encounter
CPT/HCPCS: 36415; 70450; 71101-RT; 72125; 73110-RT; 80053; 80307; 83690; 83735; 84484; 85025; 93005; 93010; 96361; 96374; 96375; 99284; 99285-25; A9270-GY; C9113; J1885; J2060; J2405; J3411; J7030

== ENCOUNTER 2023-01-20 09:24 | Emergency (ER) | payer MEDICAID | END 2023-01-20 10:30 | disposition home or self-care (01) | LOC: FB.ED 09:24 | DX: F10.20 Alcohol dependence, uncomplicated (principal); F43.10 Post-traumatic stress disorder, unspecified | CPT/HCPCS: 99283 ==

== ENCOUNTER 2023-01-21 10:58 | Emergency (ER) | payer MEDICAID ==
[2023-01-21] MEDS ORDERED: Sodium Chloride 0.9% 10 ML Syringe FLUSH PRN (11:24)
[2023-01-21] MEDS ORDERED: LORazepam 2 MG/ML SDV IVPUSH ONE (11:26)
[2023-01-21] MEDS ORDERED: Prochlorperazine 10 MG/2 ML SDV IVPUSH ONE (11:28)
[2023-01-21] MEDS: Sodium Chloride 0.9% 1,000 ML IV SCH ×2 (11:32→12:36)
[2023-01-21 11:56] LABS: BLOOD UREA NITROGEN,BUN 20 mg/dL (7-18); BUN/CREATININE RATIO 14.3 (9-20); CALCIUM 9.1 mg/dL (8.6-10.2); CARBON DIOXIDE,CO2 16 mmol/L (21-32); CHLORIDE,CL 93 mmol/L (100-110); CREATININE 1.4 mg/dL (0.70-1.30); ESTIMATED GFR 66 mL/min (>60); GLUCOSE RANDOM 154 mg/dL (80-116); SODIUM,NA 134 mmol/L (135-145)
[2023-01-21 11:58] LABS: BASOPHILS PERCENT AUTO 0.4 % (0.3-3.8); EOSINOPHILS PERCENT AUTO 0.3 % (0.1-6.8); HEMATOCRIT 41.5 % (38.3-50.1); HEMOGLOBIN 14.3 g/dL (12.9-17.7); LYMPHOCYTES ABSOLUTE AUTO 0.5 x10-3/uL (0.5-4.5); LYMPHOCYTES PERCENT AUTO 4.9 % (15.8-45.3); MEAN CORPUSCULAR HEMOGLOBIN 34.2 pg (27.0-33.3); MEAN CORPUSCULAR HGB CONC 34.4 g/dL (28.7-35.3); MEAN CORPUSCULAR VOLUME 99.4 fL (80.8-98.7); MEAN PLATELET VOLUME 8.6 fL (6.7-11.0); MONOCYTES ABSOLUTE AUTO 0.8 x10-3/uL (0.0-1.2); MONOCYTES PERCENT AUTO 8.6 % (5.5-15.2); NEUTROPHILS PERCENT AUTO 85.8 % (40.3-71.8); PLATELET COUNT,PLT 139 x10(3)uL (117-477); RED BLOOD CELL COUNT 4.18 x10(6)uL (3.90-5.90); RED CELL DISTRIBUTION WIDTH 14.1 % (12.4-15.0); WHITE BLOOD CELL COUNT,WBC 9.4 x10-3/uL (3.2-10.1)
[2023-01-21 11:59] LABS: MAGNESIUM 1.9 mg/dL (1.8-2.5); PHOSPHORUS 3.9 mg/dL (2.6-4.6)
[2023-01-21 12:07] LABS: A/G RATIO 0.9; ALBUMIN 3.9 g/dL (3.5-5.2); ALKALINE PHOSPHATASE 134 IU/L (56-112); AMYLASE 61 U/L (25-115); PROTEIN TOTAL,TP 8.3 g/dL (6.0-8.0); SALICYLATE 2.3 mg/dL (<2.8)
[2023-01-21 12:11] LABS: ALANINE AMINOTRANSFERASE,ALT 178 U/L (12-36); ASPARTATE AMNIOTRANSFERASE,AST 351 IU/L (5-25)
[2023-01-21 12:13] LABS: ACETAMINOPHEN < 2 ug/mL (<2)
[2023-01-21 12:14] LABS: LIPASE 103 U/L (16-77); TSH ULTRASENSITIVE 2.56 IU/mL (0.36-3.74)
[2023-01-21 12:15] LABS: ETHANOL BLOOD MEDICAL < 0.03 % (<0.03)
[2023-01-21] MEDS ORDERED: Potassium Chloride 20 MEQ Tab.ER PO ONE (12:24)
[2023-01-21] MEDS ORDERED: Amoxicillin/Clavulanate K 875-125 MG Tab PO ONE (14:04)
[2023-01-21 14:35] LABS: AMPHETAMINES SCREEN, URINE NEGATIVE (NEGATIVE); BARBITURATE SCREEN,URINE NEGATIVE (NEGATIVE); BENZODIAZEPINES SCREEN,URINE POSITIVE (NEGATIVE); METHADONE SCREEN, URINE NEGATIVE (NEGATIVE); METHAMPHETAMINE SCREEN, URINE NEGATIVE (NEGATIVE); OXYCODONE SCREEN,URINE NEGATIVE (NEGATIVE); PROPOXYPHENE SCREEN,URINE NEGATIVE (NEGATIVE); THC SCREEN,URINE NEGATIVE (NEGATIVE)
[2023-01-21 14:36] LABS: BUPRENORPHINE SCREEN,URINE NEGATIVE (NEGATIVE)
[2023-01-21] MEDS ORDERED: Ketorolac 30 MG/ML SDV IVPUSH ONE (15:02)
[2023-01-21] MEDS: LORazepam 2 MG/ML SDV IVPUSH PRN ×2 (16:35→19:51)
[2023-01-23 03:54] LABS: THYROXINE FREE 1.3 ng/dL (0.9-1.7)
== END 2023-01-21 20:15 ==
LOC: FB.ED 10:58
DX: F10.239 Alcohol dependence with withdrawal, unspecified (principal); F43.10 Post-traumatic stress disorder, unspecified; F41.1 Generalized anxiety disorder; E87.6 Hypokalemia; E87.1 Hypo-osmolality and hyponatremia; K70.9 Alcoholic liver disease, unspecified; G40.509 Epileptic seizures related to external causes, not intractable, without status epilepticus; F17.210 Nicotine dependence, cigarettes, uncomplicated; Z79.899 Other long term (current) drug therapy
CPT/HCPCS: 36415; 70450; 80053; 80143; 80179; 80307; 82150; 83690; 83735; 84100; 84439; 84443; 85025; 93005; 96361; 96374; 96375; 96376; 99285; A9270; J0780; J1885; J2060; J3490; J7030

== ENCOUNTER 2023-03-08 05:08 | Emergency (ER) | payer MEDICAID ==
[2023-03-08] MEDS ORDERED: LORazepam 2 MG/ML SDV IM ONE (05:35)
== END 2023-03-08 06:15 | disposition home or self-care (01) ==
LOC: FB.ED 05:08
DX: F41.1 Generalized anxiety disorder (principal); F41.0 Panic disorder [episodic paroxysmal anxiety]; F17.210 Nicotine dependence, cigarettes, uncomplicated; Z79.899 Other long term (current) drug therapy
CPT/HCPCS: 96372; 99283; J2060

== ENCOUNTER 2023-03-29 03:00 | Emergency (ER) | payer SELFPAY ==
[2023-03-29] MEDS ORDERED: Ketorolac 30 MG/ML SDV IM ONE (03:28)
== END 2023-03-29 03:50 | disposition home or self-care (01) ==
LOC: FB.ED 03:00
DX: R07.89 Other chest pain (principal); R51.9 Headache, unspecified; F41.9 Anxiety disorder, unspecified; F17.200 Nicotine dependence, unspecified, uncomplicated; Z79.899 Other long term (current) drug therapy
CPT/HCPCS: 96372; 99284; J1885

== ENCOUNTER 2023-03-30 19:15 | Emergency (ER) | payer SELFPAY ==
[2023-03-30] MEDS ORDERED: LORazepam 2 MG/ML SDV ONE (19:21)
[2023-03-30] MEDS ORDERED: LORazepam 2 MG/ML SDV IVPUSH ONE (19:34)
== END 2023-03-30 20:35 | disposition home or self-care (01) ==
LOC: FB.ED 19:15
DX: F41.1 Generalized anxiety disorder (principal); F10.10 Alcohol abuse, uncomplicated; R51.9 Headache, unspecified
CPT/HCPCS: 96374; 99284-25; J2060

== ENCOUNTER 2023-11-10 18:17 | Emergency (ER) | payer SELFPAY ==
[2023-11-10] MEDS ORDERED: Sodium Chloride 0.9% 10 ML Syringe FLUSH PRN (18:22)
[2023-11-10] MEDS: Morphine 4 MG/ML VIAL IVPUSH ONE (18:32)
[2023-11-10 18:48] LABS: BASOPHILS ABSOLUTE AUTO 0.1 x10-3/uL (0.0-0.3); BASOPHILS PERCENT AUTO 1.4 % (0.3-3.8); EOSINOPHILS ABSOLUTE AUTO 0.1 x10-3/uL (0.0-0.6); EOSINOPHILS PERCENT AUTO 1.6 % (0.1-6.8); HEMOGLOBIN 11.5 g/dL (12.9-17.7); LYMPHOCYTES ABSOLUTE AUTO 1.6 x10-3/uL (0.5-4.5); LYMPHOCYTES PERCENT AUTO 35.8 % (15.8-45.3); MEAN CORPUSCULAR HEMOGLOBIN 32.4 pg (27.0-33.3); MEAN CORPUSCULAR HGB CONC 33.9 g/dL (28.7-35.3); MEAN CORPUSCULAR VOLUME 95.4 fL (80.8-98.7); MEAN PLATELET VOLUME 7.3 fL (6.7-11.0); MONOCYTES ABSOLUTE AUTO 0.5 x10-3/uL (0.0-1.2); MONOCYTES PERCENT AUTO 10.5 % (5.5-15.2); NEUTROPHILS ABSOLUTE AUTO 2.3 x10-3/uL (1.7-6.9); NEUTROPHILS PERCENT AUTO 50.7 % (40.3-71.8); PLATELET COUNT,PLT 334 x10(3)uL (117-477); RED BLOOD CELL COUNT 3.56 x10(6)uL (3.90-5.90); RED CELL DISTRIBUTION WIDTH 13.5 % (12.4-15.0); WHITE BLOOD CELL COUNT,WBC 4.5 x10-3/uL (3.2-10.1)
[2023-11-10 18:51] LABS: BLOOD UREA NITROGEN,BUN 16 mg/dL (7-18); BUN/CREATININE RATIO 17.8 (9-20); CARBON DIOXIDE,CO2 24 mmol/L (21-32); CHLORIDE,CL 106 mmol/L (100-110); CREATININE 0.9 mg/dL (0.70-1.30); ESTIMATED GFR 111 mL/min (>60); GLUCOSE RANDOM 101 mg/dL (80-116); POTASSIUM,K 3.6 mmol/L (3.5-5.3); SODIUM,NA 142 mmol/L (135-145)
[2023-11-10 18:57] LABS: ALANINE AMINOTRANSFERASE,ALT 71 U/L (12-36); ALBUMIN 3.4 g/dL (3.5-5.2); ALKALINE PHOSPHATASE 75 IU/L (56-112); ASPARTATE AMNIOTRANSFERASE,AST 83 IU/L (5-25); BILIRUBIN TOTAL 0.4 mg/dL (0.1-1.3); PROTEIN TOTAL,TP 6.9 g/dL (6.0-8.0)
[2023-11-10 19:02] LABS: INR 0.96 (1.00-1.24); PTT,PARTIAL THROMBOPLSTIN TIME 22.9 SECONDS (24.4-33.2)
[2023-11-10] MEDS: Lidocaine/Epineph/Tetracaine 3 ML Syringe TOP ONE (19:39)
[2023-11-10] MEDS: Cephalexin 500 MG Cap PO ONE (20:09)
== END 2023-11-10 20:24 | disposition home or self-care (01) ==
LOC: FB.ED 18:17
DX: S61.512A Laceration without foreign body of left wrist, initial encounter (principal); K21.9 Gastro-esophageal reflux disease without esophagitis; F17.210 Nicotine dependence, cigarettes, uncomplicated; Z79.899 Other long term (current) drug therapy; W26.8XXA Contact with other sharp object(s), not elsewhere classified, initial encounter; Y93.89 Activity, other specified
CPT/HCPCS: 12002; 36415; 80053; 80307; 85025; 85610; 85730; 96374; 99283-25; A9270-GY; J2270

== ENCOUNTER 2023-11-20 09:59 | Emergency (ER) | payer SELFPAY | END 2023-11-20 11:35 | disposition left against medical advice (07) | LOC: FB.ED 09:59 | DX: S50.01XA Contusion of right elbow, initial encounter (principal); S60.041A Contusion of right ring finger without damage to nail, initial encounter; S60.051A Contusion of right little finger without damage to nail, initial encounter; F10.129 Alcohol abuse with intoxication, unspecified; F17.210 Nicotine dependence, cigarettes, uncomplicated; Z79.899 Other long term (current) drug therapy; Y04.8XXA Assault by other bodily force, initial encounter | CPT/HCPCS: 73080-RT; 73140-F9; 73660-RT; 99283; 99284 ==

== ENCOUNTER 2024-01-01 01:48 | Emergency (ER) | payer SELFPAY ==
[2024-01-01] MEDS: Ketorolac 30 MG/ML SDV IM ONE (02:06)
== END 2024-01-01 08:50 | disposition home or self-care (01) ==
LOC: FB.ED 01:48
DX: S93.402A Sprain of unspecified ligament of left ankle, initial encounter (principal); M79.605 Pain in left leg; M79.672 Pain in left foot; M25.552 Pain in left hip; F10.920 Alcohol use, unspecified with intoxication, uncomplicated; F17.209 Nicotine dependence, unspecified, with unspecified nicotine-induced disorders; Z79.899 Other long term (current) drug therapy; V18.0XXA Pedal cycle driver injured in noncollision transport accident in nontraffic accident, initial encounter
CPT/HCPCS: 73502; 73590; 73600; 73630; 96372; 99283; J1885

== ENCOUNTER 2024-01-01 23:02 | Emergency (ER) | payer SELFPAY ==
[2024-01-01] MEDS ORDERED: Sodium Chloride 0.9% 10 ML Syringe FLUSH PRN (23:10)
[2024-01-01 23:27] LABS: BASOPHILS ABSOLUTE AUTO 0.1 x10-3/uL (0.0-0.3); BASOPHILS PERCENT AUTO 1.4 % (0.3-3.8); EOSINOPHILS PERCENT AUTO 0.7 % (0.1-6.8); HEMATOCRIT 35.3 % (38.3-50.1); LYMPHOCYTES ABSOLUTE AUTO 1.9 x10-3/uL (0.5-4.5); LYMPHOCYTES PERCENT AUTO 30.4 % (15.8-45.3); MEAN CORPUSCULAR HEMOGLOBIN 32.6 pg (27.0-33.3); MEAN CORPUSCULAR HGB CONC 34.1 g/dL (28.7-35.3); MEAN CORPUSCULAR VOLUME 95.5 fL (80.8-98.7); MEAN PLATELET VOLUME 7.6 fL (6.7-11.0); MONOCYTES ABSOLUTE AUTO 0.9 x10-3/uL (0.0-1.2); MONOCYTES PERCENT AUTO 15.4 % (5.5-15.2); NEUTROPHILS ABSOLUTE AUTO 3.2 x10-3/uL (1.7-6.9); NEUTROPHILS PERCENT AUTO 52.1 % (40.3-71.8); PLATELET COUNT,PLT 336 x10(3)uL (117-477); RED BLOOD CELL COUNT 3.69 x10(6)uL (3.90-5.90); RED CELL DISTRIBUTION WIDTH 15.2 % (12.4-15.0); WHITE BLOOD CELL COUNT,WBC 6.2 x10-3/uL (3.2-10.1)
[2024-01-01 23:32] LABS: BLOOD UREA NITROGEN,BUN 21 mg/dL (7-18); BUN/CREATININE RATIO 26.3 (9-20); CALCIUM 8.3 mg/dL (8.6-10.2); CARBON DIOXIDE,CO2 25 mmol/L (21-32); CHLORIDE,CL 106 mmol/L (100-110); CREATININE 0.8 mg/dL (0.70-1.30); ESTIMATED GFR 115 mL/min (>60); GLUCOSE RANDOM 119 mg/dL (80-116); SODIUM,NA 143 mmol/L (135-145)
[2024-01-01 23:37] LABS: ALANINE AMINOTRANSFERASE,ALT 91 U/L (12-36); ALBUMIN 3.4 g/dL (3.5-5.2); ALKALINE PHOSPHATASE 69 IU/L (56-112); ASPARTATE AMNIOTRANSFERASE,AST 104 IU/L (5-25); BILIRUBIN TOTAL 0.4 mg/dL (0.1-1.3); PROTEIN TOTAL,TP 6.8 g/dL (6.0-8.0)
[2024-01-01 23:40] LABS: SALICYLATE 3.2 mg/dL (<2.8)
[2024-01-01 23:41] LABS: ACETAMINOPHEN < 2 ug/mL (<2); TROPONIN I 9.2 pg/mL (4.0-60.3)
[2024-01-01 23:44] LABS: ETHANOL BLOOD MEDICAL 0.37 % (<0.03)
[2024-01-01] MEDS: Sodium Chloride 0.9% 1,000 ML IV ONE (23:46)
[2024-01-02 00:06] LABS: AMPHETAMINES SCREEN, URINE NEGATIVE (NEGATIVE); BARBITURATE SCREEN,URINE NEGATIVE (NEGATIVE); BENZODIAZEPINES SCREEN,URINE NEGATIVE (NEGATIVE); METHADONE SCREEN, URINE NEGATIVE (NEGATIVE); METHAMPHETAMINE SCREEN, URINE NEGATIVE (NEGATIVE); OXYCODONE SCREEN,URINE NEGATIVE (NEGATIVE); THC SCREEN,URINE POSITIVE (NEGATIVE)
[2024-01-02 00:07] LABS: BUPRENORPHINE SCREEN,URINE NEGATIVE (NEGATIVE)
[2024-01-02] MEDS: Potassium Chloride 20 MEQ Tab.ER PO ONE (00:32)
[2024-01-02] MEDS: Iopamidol 755 Mg/ML 100 ML Bottle IV SCH (00:37)
[2024-01-02] MEDS: Nicotine Polacrilex 2 MG Gum CHEW PRN (02:40)
== END 2024-01-02 04:32 | disposition other institution (70) ==
LOC: FB.ED 23:02
DX: R07.89 Other chest pain (principal); F41.9 Anxiety disorder, unspecified; R91.8 Other nonspecific abnormal finding of lung field; E87.6 Hypokalemia; F10.129 Alcohol abuse with intoxication, unspecified; F17.200 Nicotine dependence, unspecified, uncomplicated; Z79.899 Other long term (current) drug therapy
CPT/HCPCS: 36415; 71275; 80053; 80143; 80179; 80307; 83735; 84484; 85025; 85379; 93005; 96360; 99285-25; A9270-GY; J7030; Q9967

== ENCOUNTER 2024-05-31 00:39 | Emergency (ER) | payer SELFPAY ==
[2024-05-31] MEDS: hydrOXYzine HCl 50 MG/ML SDV IM ONE (01:07)
[2024-05-31] MEDS: Ketorolac 30 MG/ML SDV IM ONE (01:08)
[2024-05-31 01:22] VITALS: BP 137/92; PULSE 105
== END 2024-05-31 02:15 | disposition home or self-care (01) ==
LOC: FB.ED 00:39
DX: G43.019 Migraine without aura, intractable, without status migrainosus (principal); M25.511 Pain in right shoulder; Z79.899 Other long term (current) drug therapy
CPT/HCPCS: 73030-RT; 96372; 99284; J1885; J3410

== ENCOUNTER 2024-06-05 07:19 | Emergency (ER) | payer SELFPAY ==
[2024-06-05] MEDS ORDERED: Ondansetron 4 MG Tab.DIS PO ONE (07:20)
[2024-06-05] MEDS ORDERED: Sodium Chloride 0.9% 10 ML Syringe FLUSH PRN (07:29)
[2024-06-05] MEDS: diphenhydrAMINE 50 MG/ML SDV IVPUSH ONE (07:44)
[2024-06-05] MEDS: Haloperidol Lactate 5 MG/ML SDV IVPUSH ONE (07:45)
[2024-06-05] MEDS: Sodium Chloride 0.9% 1,000 ML IV ONE (07:48)
[2024-06-05 07:52] LABS: BASOPHILS ABSOLUTE AUTO 0.1 x10-3/uL (0.0-0.3); BASOPHILS PERCENT AUTO 0.8 % (0.3-3.8); EOSINOPHILS ABSOLUTE AUTO 0.1 x10-3/uL (0.0-0.6); HEMOGLOBIN 15.2 g/dL (12.9-17.7); LYMPHOCYTES ABSOLUTE AUTO 2.5 x10-3/uL (0.5-4.5); LYMPHOCYTES PERCENT AUTO 38.1 % (15.8-45.3); MEAN CORPUSCULAR HEMOGLOBIN 31.8 pg (27.0-33.3); MEAN CORPUSCULAR HGB CONC 34.4 g/dL (28.7-35.3); MEAN CORPUSCULAR VOLUME 92.4 fL (80.8-98.7); MEAN PLATELET VOLUME 7.5 fL (6.7-11.0); MONOCYTES ABSOLUTE AUTO 0.5 x10-3/uL (0.0-1.2); MONOCYTES PERCENT AUTO 7.5 % (5.5-15.2); NEUTROPHILS ABSOLUTE AUTO 3.4 x10-3/uL (1.7-6.9); NEUTROPHILS PERCENT AUTO 52.6 % (40.3-71.8); PLATELET COUNT,PLT 240 x10(3)uL (117-477); RED BLOOD CELL COUNT 4.76 x10(6)uL (3.90-5.90); RED CELL DISTRIBUTION WIDTH 13.3 % (12.4-15.0); WHITE BLOOD CELL COUNT,WBC 6.5 x10-3/uL (3.2-10.1)
[2024-06-05 07:56] LABS: BLOOD UREA NITROGEN,BUN 22 mg/dL (7-18); BUN/CREATININE RATIO 24.4 (9-20); CALCIUM 8.2 mg/dL (8.6-10.2); CARBON DIOXIDE,CO2 26 mmol/L (21-32); CHLORIDE,CL 102 mmol/L (100-110); CREATININE 0.9 mg/dL (0.70-1.30); ESTIMATED GFR 110 mL/min (>60); GLUCOSE RANDOM 114 mg/dL (80-116); POTASSIUM,K 3.8 mmol/L (3.5-5.3); SODIUM,NA 142 mmol/L (135-145)
[2024-06-05 08:01] LABS: A/G RATIO 1.4; ALANINE AMINOTRANSFERASE,ALT 45 U/L (12-36); ALBUMIN 4.1 g/dL (3.5-5.2); ALKALINE PHOSPHATASE 69 IU/L (56-112); ASPARTATE AMNIOTRANSFERASE,AST 50 IU/L (5-25); BILIRUBIN TOTAL 0.7 mg/dL (0.1-1.3); MAGNESIUM 1.7 mg/dL (1.8-2.5); PROTEIN TOTAL,TP 7.1 g/dL (6.0-8.0)
[2024-06-05 08:03] LABS: C-REACTIVE PROTEIN <0.50 mg/dL (<0.50); TROPONIN I 7.1 pg/mL (4.0-60.3)
[2024-06-05] MEDS: Sodium Chloride 0.9% 1,000 ML IV SCH (09:04)
== END 2024-06-05 14:05 | disposition home or self-care (01) ==
LOC: FB.ED 07:19
DX: K85.20 Alcohol induced acute pancreatitis without necrosis or infection (principal); F10.120 Alcohol abuse with intoxication, uncomplicated; F17.200 Nicotine dependence, unspecified, uncomplicated; Z79.899 Other long term (current) drug therapy; Y90.9 Presence of alcohol in blood, level not specified
CPT/HCPCS: 80053; 80307; 83605; 83690; 83735; 84484; 85025; 86140; 93005; 96361; 96374; 96375; 99285; J1200; J1630; J7030; Q0162

== ENCOUNTER 2024-06-11 01:34 | Emergency (ER) | payer SELFPAY ==
[2024-06-11] MEDS: LORazepam 1 MG Tab PO ONE (01:50)
[2024-06-11 02:05] LABS: BLOOD UREA NITROGEN,BUN 17 mg/dL (7-18); BUN/CREATININE RATIO 21.3 (9-20); CALCIUM 8.7 mg/dL (8.6-10.2); CARBON DIOXIDE,CO2 32 mmol/L (21-32); CHLORIDE,CL 99 mmol/L (100-110); CREATININE 0.8 mg/dL (0.70-1.30); ESTIMATED GFR 114 mL/min (>60); GLUCOSE RANDOM 92 mg/dL (80-116); POTASSIUM,K 2.9 mmol/L (3.5-5.3); SODIUM,NA 141 mmol/L (135-145)
[2024-06-11 02:10] LABS: BASOPHILS PERCENT AUTO 0.6 % (0.3-3.8); EOSINOPHILS ABSOLUTE AUTO 0.1 x10-3/uL (0.0-0.6); EOSINOPHILS PERCENT AUTO 1.5 % (0.1-6.8); HEMATOCRIT 39.4 % (38.3-50.1); HEMOGLOBIN 13.9 g/dL (12.9-17.7); LYMPHOCYTES ABSOLUTE AUTO 1.6 x10-3/uL (0.5-4.5); MEAN CORPUSCULAR HEMOGLOBIN 32.4 pg (27.0-33.3); MEAN CORPUSCULAR HGB CONC 35.3 g/dL (28.7-35.3); MEAN CORPUSCULAR VOLUME 91.9 fL (80.8-98.7); MEAN PLATELET VOLUME 7.8 fL (6.7-11.0); MONOCYTES ABSOLUTE AUTO 0.7 x10-3/uL (0.0-1.2); MONOCYTES PERCENT AUTO 13.7 % (5.5-15.2); NEUTROPHILS ABSOLUTE AUTO 2.5 x10-3/uL (1.7-6.9); NEUTROPHILS PERCENT AUTO 51.2 % (40.3-71.8); PLATELET COUNT,PLT 177 x10(3)uL (117-477); RED BLOOD CELL COUNT 4.28 x10(6)uL (3.90-5.90); RED CELL DISTRIBUTION WIDTH 13.3 % (12.4-15.0); WHITE BLOOD CELL COUNT,WBC 4.9 x10-3/uL (3.2-10.1)
[2024-06-11 02:11] LABS: A/G RATIO 1.1; ALANINE AMINOTRANSFERASE,ALT 38 U/L (12-36); ALBUMIN 3.6 g/dL (3.5-5.2); ALKALINE PHOSPHATASE 71 IU/L (56-112); ASPARTATE AMNIOTRANSFERASE,AST 40 IU/L (5-25); BILIRUBIN TOTAL 0.5 mg/dL (0.1-1.3)
[2024-06-11 02:13] LABS: AMPHETAMINES SCREEN, URINE POSITIVE (NEGATIVE); BARBITURATE SCREEN,URINE NEGATIVE (NEGATIVE); BENZODIAZEPINES SCREEN,URINE NEGATIVE (NEGATIVE); METHADONE SCREEN, URINE NEGATIVE (NEGATIVE); METHAMPHETAMINE SCREEN, URINE POSITIVE (NEGATIVE); OXYCODONE SCREEN,URINE NEGATIVE (NEGATIVE); THC SCREEN,URINE POSITIVE (NEGATIVE)
[2024-06-11 02:14] LABS: BUPRENORPHINE SCREEN,URINE NEGATIVE (NEGATIVE)
[2024-06-11] MEDS: Potassium Chloride 20 MEQ Tab.ER PO ONE (02:34)
== END 2024-06-11 02:40 | disposition home or self-care (01) ==
LOC: FB.ED 01:34
DX: F41.9 Anxiety disorder, unspecified (principal); E87.6 Hypokalemia; F17.210 Nicotine dependence, cigarettes, uncomplicated; Z79.899 Other long term (current) drug therapy
CPT/HCPCS: 36415; 80053; 80307; 84443; 85025; 99284; A9270

== ENCOUNTER 2024-07-23 19:14 | Emergency (ER) | payer SELFPAY ==
[2024-07-23] MEDS ORDERED: Sodium Chloride 0.9% 10 ML Syringe FLUSH PRN (19:19)
[2024-07-23] MEDS: LORazepam 2 MG/ML SDV IVPUSH ONE (19:25)
[2024-07-23] MEDS: Sodium Chloride 0.9% 1,000 ML IV SCH (19:27)
[2024-07-23 19:38] LABS: BASOPHILS ABSOLUTE AUTO 0.1 x10-3/uL (0.0-0.3); BASOPHILS PERCENT AUTO 1.1 % (0.3-3.8); EOSINOPHILS ABSOLUTE AUTO 0.1 x10-3/uL (0.0-0.6); HEMATOCRIT 42.1 % (38.3-50.1); HEMOGLOBIN 14.5 g/dL (12.9-17.7); LYMPHOCYTES ABSOLUTE AUTO 1.9 x10-3/uL (0.5-4.5); LYMPHOCYTES PERCENT AUTO 38.4 % (15.8-45.3); MEAN CORPUSCULAR HEMOGLOBIN 33.6 pg (27.0-33.3); MEAN CORPUSCULAR HGB CONC 34.5 g/dL (28.7-35.3); MEAN CORPUSCULAR VOLUME 97.4 fL (80.8-98.7); MEAN PLATELET VOLUME 7.4 fL (6.7-11.0); MONOCYTES ABSOLUTE AUTO 0.5 x10-3/uL (0.0-1.2); MONOCYTES PERCENT AUTO 10.4 % (5.5-15.2); NEUTROPHILS ABSOLUTE AUTO 2.4 x10-3/uL (1.7-6.9); NEUTROPHILS PERCENT AUTO 48.1 % (40.3-71.8); PLATELET COUNT,PLT 311 x10(3)uL (117-477); RED BLOOD CELL COUNT 4.32 x10(6)uL (3.90-5.90); RED CELL DISTRIBUTION WIDTH 15.5 % (12.4-15.0)
[2024-07-23 19:41] LABS: BLOOD UREA NITROGEN,BUN 12 mg/dL (7-18); BUN/CREATININE RATIO 13.3 (9-20); CALCIUM 8.5 mg/dL (8.6-10.2); CARBON DIOXIDE,CO2 29 mmol/L (21-32); CHLORIDE,CL 104 mmol/L (100-110); CREATININE 0.9 mg/dL (0.70-1.30); ESTIMATED GFR 110 mL/min (>60); GLUCOSE RANDOM 96 mg/dL (80-116); SODIUM,NA 142 mmol/L (135-145)
[2024-07-23 19:46] LABS: A/G RATIO 0.9; ALANINE AMINOTRANSFERASE,ALT 97 U/L (12-36); ALBUMIN 3.7 g/dL (3.5-5.2); ALKALINE PHOSPHATASE 74 IU/L (56-112); ASPARTATE AMNIOTRANSFERASE,AST 116 IU/L (5-25); BILIRUBIN TOTAL 0.2 mg/dL (0.1-1.3); PROTEIN TOTAL,TP 7.7 g/dL (6.0-8.0)
[2024-07-23 19:49] LABS: TROPONIN I 5.8 pg/mL (4.0-60.3)
[2024-07-23] MEDS: LORazepam 2 MG/ML SDV ONE (19:53)
[2024-07-23 19:54] LABS: ETHANOL BLOOD MEDICAL 0.33 % (<0.03)
[2024-07-23 20:46] LABS: AMPHETAMINES SCREEN, URINE NEGATIVE (NEGATIVE); BARBITURATE SCREEN,URINE NEGATIVE (NEGATIVE); BENZODIAZEPINES SCREEN,URINE NEGATIVE (NEGATIVE); METHADONE SCREEN, URINE NEGATIVE (NEGATIVE); METHAMPHETAMINE SCREEN, URINE NEGATIVE (NEGATIVE); OXYCODONE SCREEN,URINE NEGATIVE (NEGATIVE); THC SCREEN,URINE NEGATIVE (NEGATIVE)
[2024-07-23 20:47] LABS: BUPRENORPHINE SCREEN,URINE NEGATIVE (NEGATIVE)
== END 2024-07-24 03:53 | disposition home or self-care (01) ==
LOC: FB.ED 19:14
DX: F10.131 Alcohol abuse with withdrawal delirium (principal); T50.7X1A Poisoning by analeptics and opioid receptor antagonists, accidental (unintentional), initial encounter; F41.1 Generalized anxiety disorder; Z79.899 Other long term (current) drug therapy; K21.9 Gastro-esophageal reflux disease without esophagitis; Y90.9 Presence of alcohol in blood, level not specified
CPT/HCPCS: 36415; 71045; 80053; 80307; 84484; 85025; 93005; 93010; 96361; 96374; 99284; 99285; J2060; J7030

== ENCOUNTER 2024-08-02 08:09 | Emergency (ER) | payer BC ==
[2024-08-02] MEDS: Acetaminophen 500 MG Tab PO ONE (09:26)
[2024-08-02 09:27] LABS: BASOPHILS ABSOLUTE AUTO 0.1 x10-3/uL (0.0-0.3); BASOPHILS PERCENT AUTO 1.3 % (0.3-3.8); EOSINOPHILS ABSOLUTE AUTO 0.1 x10-3/uL (0.0-0.6); EOSINOPHILS PERCENT AUTO 1.7 % (0.1-6.8); HEMATOCRIT 38.5 % (38.3-50.1); HEMOGLOBIN 13.3 g/dL (12.9-17.7); LYMPHOCYTES ABSOLUTE AUTO 1.2 x10-3/uL (0.5-4.5); LYMPHOCYTES PERCENT AUTO 28.5 % (15.8-45.3); MEAN CORPUSCULAR HEMOGLOBIN 33.2 pg (27.0-33.3); MEAN CORPUSCULAR HGB CONC 34.5 g/dL (28.7-35.3); MEAN CORPUSCULAR VOLUME 96.2 fL (80.8-98.7); MONOCYTES ABSOLUTE AUTO 0.6 x10-3/uL (0.0-1.2); MONOCYTES PERCENT AUTO 14.1 % (5.5-15.2); NEUTROPHILS ABSOLUTE AUTO 2.3 x10-3/uL (1.7-6.9); NEUTROPHILS PERCENT AUTO 54.4 % (40.3-71.8); PLATELET COUNT,PLT 188 x10(3)uL (117-477); RED CELL DISTRIBUTION WIDTH 15.5 % (12.4-15.0); WHITE BLOOD CELL COUNT,WBC 4.3 x10-3/uL (3.2-10.1)
[2024-08-02] MEDS: Diphtheria,Pertussis(Acell),Tetanus Vaccine 0.5 ML Syringe IM ONE (09:27)
[2024-08-02 09:31] LABS: BLOOD UREA NITROGEN,BUN 20 mg/dL (7-18); CALCIUM 8.1 mg/dL (8.6-10.2); CARBON DIOXIDE,CO2 27 mmol/L (21-32); CHLORIDE,CL 100 mmol/L (100-110); CREATININE 0.8 mg/dL (0.70-1.30); ESTIMATED GFR 114 mL/min (>60); GLUCOSE RANDOM 117 mg/dL (80-116); POTASSIUM,K 3.6 mmol/L (3.5-5.3); SODIUM,NA 137 mmol/L (135-145)
[2024-08-02 09:39] LABS: TROPONIN I 6.4 pg/mL (4.0-60.3)
[2024-08-02 09:42] LABS: ALANINE AMINOTRANSFERASE,ALT 107 U/L (12-36); ALBUMIN 3.6 g/dL (3.5-5.2); ALKALINE PHOSPHATASE 71 IU/L (56-112); BILIRUBIN TOTAL 0.3 mg/dL (0.1-1.3); PROTEIN TOTAL,TP 7.1 g/dL (6.0-8.0)
[2024-08-02 09:43] LABS: C-REACTIVE PROTEIN < 0.50 mg/dL (<0.50)
[2024-08-02 09:44] LABS: ETHANOL BLOOD MEDICAL 0.27 % (<0.03)
[2024-08-02 09:45] LABS: ASPARTATE AMNIOTRANSFERASE,AST 177 IU/L (5-25)
[2024-08-02] MEDS: hydrOXYzine HCl 25 MG Tab PO ONE (10:09)
== END 2024-08-02 11:05 | disposition home or self-care (01) ==
LOC: FB.ED 08:09
DX: S01.03XA Puncture wound without foreign body of scalp, initial encounter (principal); S00.03XA Contusion of scalp, initial encounter; F10.10 Alcohol abuse, uncomplicated; F10.929 Alcohol use, unspecified with intoxication, unspecified; Z79.899 Other long term (current) drug therapy; F17.200 Nicotine dependence, unspecified, uncomplicated; F41.9 Anxiety disorder, unspecified; W45.0XXA Nail entering through skin, initial encounter
CPT/HCPCS: 36415; 70450; 80053; 80307; 83735; 84484; 85025; 86140; 90471; 90715; 93005; 99285; A9270

== ENCOUNTER 2024-08-16 10:15 | Emergency (ER) | payer MEDICAID ==
[2024-08-16] MEDS ORDERED: Sodium Chloride 0.9% 10 ML Syringe FLUSH PRN (10:24)
[2024-08-16] MEDS ORDERED: Ondansetron 4 MG/2 ML SDV IVPUSH ONE (10:24)
[2024-08-16] MEDS: Prochlorperazine 10 MG/2 ML SDV IVPUSH ONE (10:38)
[2024-08-16] MEDS: LORazepam 2 MG/ML SDV IVPUSH ONE (10:38)
[2024-08-16] MEDS: Thiamine 200 MG/2 ML MDV IVPUSH ONE (10:39)
[2024-08-16] MEDS: Sodium Chloride 0.9% 1,000 ML IV SCH (10:42)
[2024-08-16 10:44] LABS: BLOOD UREA NITROGEN,BUN 9 mg/dL (7-18); BUN/CREATININE RATIO 11.3 (9-20); CARBON DIOXIDE,CO2 27 mmol/L (21-32); CHLORIDE,CL 101 mmol/L (100-110); CREATININE 0.8 mg/dL (0.70-1.30); ESTIMATED GFR 114 mL/min (>60); GLUCOSE RANDOM 87 mg/dL (80-116); POTASSIUM,K 3.3 mmol/L (3.5-5.3); SODIUM,NA 140 mmol/L (135-145)
[2024-08-16 10:46] LABS: HEMATOCRIT 40.7 % (38.3-50.1); HEMOGLOBIN 14.3 g/dL (12.9-17.7); MEAN CORPUSCULAR HEMOGLOBIN 33.8 pg (27.0-33.3); MEAN CORPUSCULAR VOLUME 96.6 fL (80.8-98.7); MEAN PLATELET VOLUME 7.2 fL (6.7-11.0); PLATELET COUNT,PLT 295 x10(3)uL (117-477); RED BLOOD CELL COUNT 4.22 x10(6)uL (3.90-5.90); RED CELL DISTRIBUTION WIDTH 14.3 % (12.4-15.0); WHITE BLOOD CELL COUNT,WBC 4.6 x10-3/uL (3.2-10.1)
[2024-08-16 11:02] LABS: LYMPHOCYTES PERCENT MAN 39 % (13-37); MONOCYTES PERCENT MAN 21 % (4-12); SEG NEUTROPHILS PERCENT MAN 40 % (46-82)
[2024-08-16 11:03] LABS: A/G RATIO 1.1; ALBUMIN 3.8 g/dL (3.5-5.2); ALKALINE PHOSPHATASE 76 IU/L (56-112); BILIRUBIN TOTAL 0.4 mg/dL (0.1-1.3); PROTEIN TOTAL,TP 7.3 g/dL (6.0-8.0)
[2024-08-16 11:04] LABS: ALANINE AMINOTRANSFERASE,ALT 162 U/L (12-36)
[2024-08-16 11:05] LABS: ASPARTATE AMNIOTRANSFERASE,AST 242 IU/L (5-25)
[2024-08-16] MEDS: Potassium Chloride 20 MEQ Tab.ER PO ONE (11:17)
== END 2024-08-16 13:45 | disposition home or self-care (01) ==
LOC: FB.ED 10:15
DX: R07.9 Chest pain, unspecified (principal); E87.6 Hypokalemia; F17.200 Nicotine dependence, unspecified, uncomplicated; Z79.899 Other long term (current) drug therapy
CPT/HCPCS: 36415; 71045; 80053; 84484; 85025; 93005; 93010; 96361; 96374; 96375; 99284; 99285; A9270; J0780; J2060; J3411; J7030

== ENCOUNTER 2024-10-04 10:57 | Emergency (ER) | payer MEDICAID | END 2024-10-04 11:52 | disposition home or self-care (01) | LOC: FB.ED 10:57 | DX: G44.209 Tension-type headache, unspecified, not intractable (principal); F17.200 Nicotine dependence, unspecified, uncomplicated; Z79.899 Other long term (current) drug therapy | CPT/HCPCS: 99283 ==

== ENCOUNTER 2024-11-03 21:00 | Emergency (ER) | payer MEDICAID ==
[2024-11-03] MEDS: LORazepam 2 MG/ML SDV IM ONE (21:22)
[2024-11-03] MEDS: Ketorolac 30 MG/ML SDV IM ONE (21:22)
== END 2024-11-03 23:02 | disposition home or self-care (01) ==
LOC: FB.ED 21:00
DX: M25.511 Pain in right shoulder (principal); Z79.899 Other long term (current) drug therapy; F17.200 Nicotine dependence, unspecified, uncomplicated
CPT/HCPCS: 73030; 96372; 99284; J1885; J2060

== ENCOUNTER 2024-11-20 23:38 | Emergency (ER) | payer MEDICAID ==
[2024-11-21] MEDS: Ketorolac 30 MG/ML SDV IVPUSH ONE (00:31)
[2024-11-21 00:36] LABS: BASOPHILS ABSOLUTE AUTO 0.0 x10-3/uL (0.0-0.3); EOSINOPHILS ABSOLUTE AUTO 0.1 x10-3/uL (0.0-0.6); LYMPHOCYTES ABSOLUTE AUTO 1.8 x10-3/uL (0.5-4.5); LYMPHOCYTES PERCENT AUTO 47.3 % (15.8-45.3); MONOCYTES ABSOLUTE AUTO 0.5 x10-3/uL (0.0-1.2); NEUTROPHILS ABSOLUTE AUTO 1.4 x10-3/uL (1.7-6.9)
[2024-11-21 00:38] LABS: BASOPHILS PERCENT AUTO 1.1 % (0.3-3.8); EOSINOPHILS PERCENT AUTO 2.0 % (0.1-6.8); MEAN PLATELET VOLUME 7.1 fL (6.7-11.0); MONOCYTES PERCENT AUTO 13.4 % (5.5-15.2); NEUTROPHILS PERCENT AUTO 36.2 % (40.3-71.8); PLATELET COUNT,PLT 236 x10(3)uL (117-477); RED BLOOD CELL COUNT 4.29 x10(6)uL (3.90-5.90); RED CELL DISTRIBUTION WIDTH 15.0 % (12.4-15.0); WHITE BLOOD CELL COUNT,WBC 3.8 x10-3/uL (3.2-10.1)
[2024-11-21 00:39] LABS: BLOOD UREA NITROGEN,BUN 16 mg/dL (7-18); CARBON DIOXIDE,CO2 32 mmol/L (21-32); CHLORIDE,CL 106 mmol/L (100-110); CREATININE 0.8 mg/dL (0.70-1.30); EST CRCL DRUG DOSING (CG) 109.15 mL/min; ESTIMATED GFR 114 mL/min (>60); GLUCOSE RANDOM 104 mg/dL (80-116); POTASSIUM,K 3.6 mmol/L (3.5-5.3); SODIUM,NA 146 mmol/L (135-145)
[2024-11-21 00:45] LABS: A/G RATIO 1.1; ALANINE AMINOTRANSFERASE,ALT 80 U/L (12-36); ASPARTATE AMNIOTRANSFERASE,AST 123 IU/L (5-25); BILIRUBIN TOTAL 0.4 mg/dL (0.1-1.3); PROTEIN TOTAL,TP 7.4 g/dL (6.0-8.0)
[2024-11-21 00:49] LABS: ETHANOL BLOOD MEDICAL 0.32 % (<0.03)
[2024-11-21 00:54] LABS: AMPHETAMINES SCREEN, URINE NEGATIVE (NEGATIVE); METHADONE SCREEN, URINE NEGATIVE (NEGATIVE); METHAMPHETAMINE SCREEN, URINE NEGATIVE (NEGATIVE); OXYCODONE SCREEN,URINE NEGATIVE (NEGATIVE)
[2024-11-21 00:55] LABS: BUPRENORPHINE SCREEN,URINE NEGATIVE (NEGATIVE)
== END 2024-11-21 02:15 | disposition home or self-care (01) ==
LOC: FB.ED 23:38
DX: K70.9 Alcoholic liver disease, unspecified (principal); F10.129 Alcohol abuse with intoxication, unspecified; Z79.899 Other long term (current) drug therapy; F17.210 Nicotine dependence, cigarettes, uncomplicated; Y90.9 Presence of alcohol in blood, level not specified
CPT/HCPCS: 36415; 80053; 80307; 83690; 83735; 85025; 86140; 87426; 96374; 99284; J1885

== ENCOUNTER 2024-11-25 05:39 | Emergency (ER) | payer MEDICAID | END 2024-11-25 06:11 | disposition left against medical advice (07) | LOC: FB.ED 05:39 | DX: F15.129 Other stimulant abuse with intoxication, unspecified (principal); I10 Essential (primary) hypertension; K21.9 Gastro-esophageal reflux disease without esophagitis; F17.200 Nicotine dependence, unspecified, uncomplicated; Z79.899 Other long term (current) drug therapy | CPT/HCPCS: 99283 ==